=== PATIENT | female | born 1985 | race Caucasian/White ===

== ENCOUNTER → 2016-07-13 | Outpatient (CLI) | payer OTHER ==
--- NOTE | 2016-07-13 14:50 | CT ---
EXAMINATION TYPE: CT brain wo con DATE OF EXAM: 07/13/2016 2:45 PM COMPARISON: CT brain June 12, 2015 HISTORY: Patient complains of severe headache and blurry vision. CT DLP: 1064 mGycm. Automated Exposure Control for Dose Reduction was Utilized. TECHNIQUE: CT scan of the head is performed without contrast. FINDINGS: There is no acute intracranial hemorrhage, mass effect, or midline shift identified. The ventricles and sulci are within normal limits in size. The globes are intact and the visualized sin uses are clear. The calvarium is intact. IMPRESSION: No acute intracranial hemorrhage or midline shift is seen. No significant change from pr ior study is noted.
== END | disposition home or self-care (01) ==
LOC: RADCTMAIN 14:02
PROVIDERS: ATTEND Psychiatry & Neurology Neurology
DX: G93.2 Benign intracranial hypertension (principal)
CPT/HCPCS: 70450

== ENCOUNTER → 2016-07-15 | Day surgery (SDC) | payer OTHER ==
[~2016-07-15] MED LIST: MIDAZOLAM 2 MG/2 ML VIAL IV ONE; SODIUM CHLORIDE 0.9% 250 ML in EMPTY BAG 1 BAG IV PRN; SODIUM CHLORIDE 0.9% 500 ML in EMPTY BAG 1 BAG IV PRN; fentaNYL (PF) 50 MCG/ML 2 ML AMP IV ONE
[2016-07-15 11:36] VITALS: RESP 16; TEMP 97.8
[2016-07-15] MEDS: LACTATED RINGERS 1,000 ML IV ONE (11:40)
[2016-07-15 12:25] VITALS: BP 124/67; PULSE 86
--- NOTE | 2016-07-15 12:25 | P.PCN ---
Date of Procedure: 07/15/16 Preoperative Diagnosis: Pseudotumor cerebri Postoperative Diagnosis: Same as above Anesthesia: local Surgeon: Elvis Moss Pathology: none sent Condition: stable Disposition: no change Operative Findings: Opening pressure 56 mm 20 mls of CSF are taken out with spontaneous flow Closing pressure 31 mm Description of Procedure: This is a 31-year-old morbidly obese lady with history of pseudotumor cerebri. Vision has been having increasing headaches lately and she was referred to us by neurology for lumbar puncture and removal of CSF. The patient assumed the left lateral decubitus position the skin on her back was prepped with DuraPrep and draped in a sterile manner. I then used 1% lidocaine to localize the skin at the L4 5 level midline. I used 5 inch 22- gauge Quincke spinal needle for this procedure. There was positive CSF and negative paresthesia or blood. The intrathecal sac was accessed with one attempt. The opening pressure was 56 mm I then called Dr. Ernesto lawrence the patient's neurologist who then asked me to remove 20 MLS of the CSF. Then 20 MLS of CSF were removed by spontaneous flow back and without applying any negative pressure to the spinal needle. Then the closing pressure was 31 mm. The needle was taken out and Band-Aid was applied to the puncture site and the patient then was placed supine with 30 head elevation. No sedation was provided for this procedure.
== END ==
LOC: PROCWHC3 11:18
PROVIDERS: ATTEND Anesthesiology
DX: G93.2 Benign intracranial hypertension (principal); E66.01 Morbid (severe) obesity due to excess calories; Z68.43 Body mass index [BMI] 50.0-59.9, adult; Z88.5 Allergy status to narcotic agent; Z91.040 Latex allergy status
CPT/HCPCS: 62270; 81025; 96360

== ENCOUNTER 2016-07-16 14:56 | Day surgery (SDC) | payer OTHER ==
[2016-07-16 15:38] VITALS: BP 159/100; PULSE 116; RESP 16
[2016-07-16] MEDS ORDERED: LACTATED RINGERS 1,000 ML IV ONE (15:47)
[2016-07-16] MEDS ORDERED: LIDOCAINE 1% 20 ML VIAL (10MG/ML) FOR IV START INTRADERMA ONE (15:47)
[2016-07-16 15:52] VITALS: TEMP 97.5; BMI 57.2
--- NOTE | 2016-07-16 16:29 | P.CON ---
Consult Note - . Consult date: 07/16/16 Assessment/Plan:: Patient seen and examined, chart reviewed including past medical history, surgical history, social history, family history, full list of medications, and allergies. Ms. Yap is an obese 31-year-old female with history of pseudotumor cerebri who has undergone > 20 therapeutic lumbar punctures in the past, and has never required epidural blood patch in the past. Most recently, LP was performed yesterday by Dr. Moss with removal of 20 ml of fluid. Fluid pressure after drainage decreased to 31 cm H2O per report from 56 cm H2O. Patient states that she had occipital headache prior to procedure, and after procedure, pt began to complain of throbbing on the top of her head (pointing to parietal area). Headache is described as such and patient does not endorse that it changes with position. Physical exam demonstrates an obese female with BP 159/100, HR 116, T94.5F. I had patient in supine, sitting, and standing positions for three to five minutes , and headache quality, intensity, and location did not significantly change. I discussed the patient's case with Dr. Orozco, who agrees that the patient will likely not benefit from an epidural blood patch as she does not have a classic postdural puncture headache. Will give patient prescriptions for [place] and Fioricet for the next week and instructed her to come to ER if she starts to note any neurologic changes or a positional component to headache and there is no benefit from fluids and caffeine. Please call back with any further questions.
== END 2016-07-16 18:19 | disposition home or self-care (01) ==
LOC: ORPAIN 14:56
PROVIDERS: ATTEND Anesthesiology
DX: G97.1 Other reaction to spinal and lumbar puncture (principal); R51 Headache; Y84.4 Aspiration of fluid as the cause of abnormal reaction of the patient, or of later complication, without mention of misadventure at the time of the procedure; G93.2 Benign intracranial hypertension; Z53.8 Procedure and treatment not carried out for other reasons

== ENCOUNTER 2016-07-17 15:33 | Emergency (ER) | payer OTHER ==
[2016-07-17 16:12] VITALS: RESP 18
[2016-07-17] MEDS ORDERED: METOCLOPRAMIDE 5 MG/ML 2 ML VIAL IVP STA (17:10)
[2016-07-17] MEDS ORDERED: SODIUM CHLORIDE 0.9% 1,000 ML IV ONE (17:10)
[2016-07-17] MEDS ORDERED: diphenhydrAMINE 50 MG/ML 1 ML VIAL IVP STA (17:10)
[2016-07-17] MEDS ORDERED: ACETAMINOPHEN IV (For NPO) 1,000 MG in EMPTY BAG 1 BAG IVPB ONE (17:11)
[2016-07-17 17:22] LABS: Basophils % (A) 1 %; CH 26.3; CHCM 32.5; Eosinophils # (A) 0.1 k/uL (0-0.7); Eosinophils % (A) 2 %; HCT 42.5 % (34.0-46.0); HDW 3.13; HGB 13.4 gm/dL (11.4-16.0); Hypochromasia Slight; Luc # (Auto) 0.04; Luc % (Auto) 1; Lymphocytes # (A) 1.2 k/uL (1.0-4.8); Lymphocytes % (A) 16 %; MCH 25.7 pg (25.0-35.0); MCHC 31.6 g/dL (31.0-37.0); MCV 81.3 fL (80.0-100.0); Mean Platelet Volume 7.4; Monocytes # (A) 0.3 k/uL (0-1.0); Monocytes % (A) 4 %; Neutrophils # (A) 5.5 k/uL (1.3-7.7); Neutrophils % (A) 77 %; RBC 5.22 m/uL (3.80-5.40); RDW 15.4 % (11.5-15.5); WBC 7.1 k/uL (3.8-10.6); WBC (Perox) 7.19
[2016-07-17 17:35] LABS: Anion Gap 9 mmol/L; Blood Urea Nitrogen 16 mg/dL (7-17); Calcium 9.1 mg/dL (8.4-10.2); Carbon Dioxide 25 mmol/L (22-30); Chloride 106 mmol/L (98-107); Glucose 117 mg/dL (74-99); Non-African American GFR(MDRD) >60 (>60 ml/min/1.73 sqM); Potassium 4.1 mmol/L (3.5-5.1); Sodium 140 mmol/L (137-145)
--- NOTE | 2016-07-17 17:41 | ED ---
Headache HPI - General Chief Complaint: Headache Stated Complaint: Nausea/Headache Time Seen by Provider: 07/17/16 16:59 Mode of arrival: wheelchair Limitations: no limitations - History of Present Illness Initial Comments: Patient is a 31-year-old female presenting to the with a chief complaint of migraine-like headache. Patient has a history of pseudotumor sure he breathes has undergone greater than 20 therapeutic lumbar punctures in the past. Patient reports that she has recently had a lumbar puncture 2 days ago performed by Dr. santa. At that point the LP removed 20 mL of fluid, patient' s opening pressure was 51 cm and was decreased at 31 cm the closing pressure. Patient states that she does have an occipital headache prior to the procedure and after the procedure. Began to become worse and is a throbbing on the top of her head towards her neck. Patient states that she also feels nauseated however she has not vomited. Patient states that she has had a history of continuous headaches after her lumbar punctures. Patient reports that her headache feels better with sitting straight forward she states that it occasionally feels worse and she laced with a flap. Patient was seen yesterday and was wearing was given IV fluids and was seen by nurse practitioner Bridgette Benites. Dr. Orozco patient's neurologist was contacted in it was reported the patient would not benefit from epidural blood patch she does not have a classic post dural puncture headache. At that point patient is discharged with [place] Fioricet and instructed to come the emergency room for worse. states that she's had no change with her oral medication and reports the headache subsided for approximately 20 minutes and then come back. - Related Data Home Medications Medication Instructions Recorded Confirmed acetaZOLAMIDE [Diamox] 500 mg PO BID 03/04/15 07/17/16 Cetirizine HCl [Zyrtec] 10 mg PO DAILY 04/07/16 07/17/16 Phentermine HCl [Adipex-P] 37.5 mg PO QAM 04/07/16 07/17/16 Topiramate [Topamax] 50 mg PO BID 04/07/16 07/17/16 Levothyroxine Sodium [Synthroid] 150 mcg PO HS 05/26/16 07/17/16 Butalb/APAP/Caff 50-325-40Mg 1 tab PO BID PRN 07/17/16 07/17/16 [Fioricet 50-325-40] Furosemide [Lasix] 20 mg PO MOWEFR 07/17/16 07/17/16 HYDROcodone/APAP 7.5-325MG [[place] 1 tab PO BID PRN 07/17/16 07/17/16 7.5-325] Lisinopril [Zestril] 10 mg PO DAILY 07/17/16 07/17/16 Previous Rx's Medication Instructions Recorded HYDROcodone/APAP 10-325MG [[place] 1 tab PO Q6H PRN #10 tab 07/17/16 10-325] Metoclopramide [Reglan] 10 mg PO BID #8 tab 07/17/16 Allergies Allergy/AdvReac Type Severity Reaction Status Date / Time codeine Allergy Low Blood Verified 07/17/16 16:52 Pressure latex Allergy Rash/Hives Verified 07/17/16 16:52 Review of Systems ROS Statement: Those systems with pertinent positive or pertinent negative responses have been documented in the HPI. ROS Other: All systems not noted in ROS Statement are negative. Past Medical History Past Medical History: Asthma, Hypertension, Thyroid Disorder Additional Past Medical History / Comment(s): severe migraines, pseudotumor cerebri History of Any Multi-Drug Resistant Organisms: None Reported Past Surgical History: Section Additional Past Surgical History / Comment(s): marvel eye surgery, lt oophorectomy Past Anesthesia/Blood Transfusion Reactions: Family History of Problems w/ Anesthesia Additional Past Anesthesia/Blood Transfusion Reaction / Comment(s): mother is allergic to most anesthesia medications experiences hives Past Psychological History: ADD/ADHD, Anxiety, Bipolar, Depression Smoking Status: Current every day smoker Past Alcohol Use History: None Reported Additional Past Alcohol Use History / Comment(s): smoker for 6 years -1 PPD Past Drug Use History: None Reported - Past Family History Mother Family Medical History: No Reported History General Exam - General Exam Comments Initial Comments: Patient is a morbidly obese 31-year-old female. Limitations: no limitations General appearance: alert, in no apparent distress Head exam: Present: atraumatic, normocephalic, normal inspection Eye exam: Present: normal appearance, PERRL, EOMI. Absent: scleral icterus, conjunctival injection, periorbital swelling ENT exam: Present: normal exam, normal oropharynx, mucous membranes moist, TM's normal bilaterally, normal external ear exam Neck exam: Present: normal inspection, full ROM, other (No evidence of meningeal signs.). Absent: tenderness, meningismus, lymphadenopathy, thyromegaly Respiratory exam: Present: normal lung sounds bilaterally. Absent: respiratory distress, wheezes, rales, rhonchi, stridor Cardiovascular Exam: Present: regular rate, normal rhythm, normal heart sounds. Absent: systolic murmur, diastolic murmur, rubs, gallop, clicks GI/Abdominal exam: Present: soft, normal bowel sounds. Absent: distended, tenderness, guarding, rebound, rigid Extremities exam: Present: normal inspection, full ROM, normal capillary refill. Absent: tenderness, pedal edema, joint swelling, calf tenderness Back exam: Present: normal inspection Neurological exam: Present: alert, oriented X3, CN II-XII intact Expanded Patient oriented to: Present: person, place, time Speech: Present: fluid speech Cranial nerves: EOM's Intact: Normal, Gag Reflex: Normal, Tongue Deviation: Normal Cerebellar function: Finger to Nose: Normal Upper motor neuron: Basim Neglect: Normal Sensory exam: Upper Extremity Light Touch: Normal, Lower Extremity Light Touch: Normal Motor strength exam: RUE: 5, LUE: 5, RLE: 5, LLE: 5 Eye Response: (4) open spontaneously Motor Response: (6) obeys commands Verbal Response: (5) oriented Rogers Total: 15 Psychiatric exam: Present: normal affect, normal mood Skin exam: Present: warm, dry, intact, normal color. Absent: rash Course Vital Signs 07/17/16 16:08 Temperature 98.0 F Pulse Rate 99 Respiratory 18 Rate Blood Pressure 164/90 O2 Sat by Pulse 97 Oximetry - Reevaluation(s) Reevaluation #1: 07/17/16 17:48 Patient was reevaluated and states her headache is somewhat mildly improved. She reports that her headache is persistent in regards to position at this time. Reevaluation #2: 07/17/16 19:17 Patient is reevaluated states her headache is continue to persist. We tried multiple times to contact Dr. Orozco her neurologist, however not returned our calls. We'll treat the patient's headache with milligram of Dilaudid. I discussed this case This with Dr. Haywood. Patient will be discharged with more pain medication and instructed to follow-up with her neurologist on Wednesday. Medical Decision Making - Lab Data Result diagrams: 07/17/16 17:03 07/17/16 17:03 Lab Results 07/17/16 07/17/16 Range/Units 17:03 17:03 WBC 7.1 (3.8-10.6) k/uL RBC 5.22 (3.80-5.40) m/uL Hgb 13.4 (11.4-16.0) gm/dL Hct 42.5 (34.0-46.0) % MCV 81.3 (80.0-100.0) fL MCH 25.7 (25.0-35.0) pg MCHC 31.6 (31.0-37.0) g/dL RDW 15.4 (11.5-15.5) % Plt Count 289 (150-450) k/uL Neutrophils % 77 % Lymphocytes % 16 % Monocytes % 4 % Eosinophils % 2 % Basophils % 1 % Neutrophils # 5.5 (1.3-7.7) k/uL Lymphocytes # 1.2 (1.0-4.8) k/uL Monocytes # 0.3 (0-1.0) k/uL Eosinophils # 0.1 (0-0.7) k/uL Basophils # 0.0 (0-0.2) k/uL Hypochromasia Slight Sodium 140 (137-145) mmol/L Potassium 4.1 (3.5-5.1) mmol/L Chloride 106 (98-107) mmol/L Carbon Dioxide 25 (22-30) mmol/L Anion Gap 9 mmol/L BUN 16 (7-17) mg/dL Creatinine 0.94 (0.52-1.04) mg/dL Est GFR (MDRD) Af Amer >60 (>60 ml/min/1.73 sqM) Est GFR (MDRD) Non-Af >60 (>60 ml/min/1.73 sqM) Glucose 117 H (74-99) mg/dL Calcium 9.1 (8.4-10.2) mg/dL Disposition Clinical Impression: Post lumbar puncture headache Disposition: HOME SELF-CARE Condition: Good Instructions: Acute Headache (ED), Lumbar Puncture (ED) Additional Instructions: Patient instructed to follow-up with neurologist on Wednesday. Return to the EC if any alarming signs or symptoms occur including altered mental status, fever or chills. Patient instructed to take pain medications as prescribed. Return to the EC again if any alarming signs occur Prescriptions: HYDROcodone/APAP 10-325MG [[place] 10-325] 1 tab PO Q6H PRN #10 tab PRN Reason: Pain Metoclopramide [Reglan] 10 mg PO BID #8 tab Referrals: Cong Abreu MD [Primary Care Provider] - 1-2 days Time of Disposition: 19:18
[2016-07-17] MEDS ORDERED: HYDROmorphone 1 MG/ML 1 ML SYRINGE IVP STA (19:12)
[2016-07-17 19:53] VITALS: BP 152/86; PULSE 80; TEMP 97.6
== END 2016-07-17 19:53 | disposition home or self-care (01) ==
LOC: EC 15:33
DX: G97.1 Other reaction to spinal and lumbar puncture (principal); G93.2 Benign intracranial hypertension; I10 Essential (primary) hypertension; G43.909 Migraine, unspecified, not intractable, without status migrainosus; E07.9 Disorder of thyroid, unspecified; E66.01 Morbid (severe) obesity due to excess calories; F17.200 Nicotine dependence, unspecified, uncomplicated; Z79.899 Other long term (current) drug therapy; Z91.040 Latex allergy status; Z88.5 Allergy status to narcotic agent
CPT/HCPCS: 36415; 80048; 85025; 99284; 96375 ×3; 96365; 96366; J1200; J2765; J1170; J0131

== ENCOUNTER → 2016-07-20 | Day surgery (SDC) | payer OTHER ==
[2016-07-16 08:48] VITALS: BMI 57.2
[~2016-07-20] MED LIST changes: +BUPIVACAINE (PF) 0.75% 30 ML VIAL ONE; +IV FLUID CONTINUATION 1,000 ML IV ONE; +LACTATED RINGERS 1,000 ML IV ONE; +LACTATED RINGERS 1,000 ML IV SCH; +LIDOCAINE 1% 20 ML VIAL (10MG/ML) FOR IV START INTRADERMA ONE; -MIDAZOLAM 2 MG/2 ML VIAL IV ONE; +MIDAZOLAM 2 MG/2 ML VIAL ONE; -SODIUM CHLORIDE 0.9% 250 ML in EMPTY BAG 1 BAG IV PRN; -SODIUM CHLORIDE 0.9% 500 ML in EMPTY BAG 1 BAG IV PRN; +TRIAMCINOLONE ACETONIDE 40 MG/ML 1 ML VIAL ONE; -fentaNYL (PF) 50 MCG/ML 2 ML AMP IV ONE; +fentaNYL (PF) 50 MCG/ML 2 ML AMP ONE
[2016-07-20 07:46] VITALS: RESP 18; TEMP 97.9
--- NOTE | 2016-07-20 08:56 | P.PCN ---
Date of Procedure: 07/20/16 Procedure(s) Performed: Pre-operative diagnosis: 1- Bilateral occipital neuralgea Post Operative Diagnosis 1- Bilateral occipital neuralgea Procedure: 1- Bilateral occipital nerve block ANESTHESIA: Conscious sedation with Versed. 2 mg and fentanyl 100 micrograms EBL: Minimal PROCEDURE INDICATION: The patient with neck pain and headache secondary to occipital neuralgea unresponsive to conservative treatments. PROCEDURE DESCRIPTION / TECHNIQUE: The patient was seen and identified in the preoperative area. Risks, benefits, complications, and alternatives were discussed with the patient, the patient agreed to proceed with the procedure and signed the consent. IV was started. Vital signs remained stable throughout the procedure. Patient was taken to the OR and time out was completed. The patient was placed in the sitting position on the procedure table. A pillow was placed under the patients chest to increase the cervical interlaminar space. The cervical area and the occiptial area were prepped with alcohol swab. Critical pause was taken. Vital signs were closely monitored during the procedure. Conscious sedation was used during the procedure to decrease patients anxiety. The right occiptal ridge was palpated and was then accessed with a 25 G needle. Then after negative aspiration, 5 ml of the block solution containing 6 ml of PF Buvicaine 0.75% and Kenalog 40 mg was injected. Needle was withdrawn intact. Then the same procedure was repeated on the left side and related the left occipital nerve block, after negative aspiration 6 mL of the block solution containing ropivacaine 0.5% and 40 mg of Kenalog injected after negative aspiration Patient tolerated procedure well. No acute complications.
[2016-07-20 09:23] VITALS: BP 144/82; PULSE 73
== END ==
LOC: ORPAIN 06:40
PROVIDERS: ATTEND Specialist
DX: M54.81 Occipital neuralgia (principal); Z88.5 Allergy status to narcotic agent; Z91.040 Latex allergy status
CPT/HCPCS: 81025; 64405; J2250; J3301; J3010

== ENCOUNTER 2016-10-15 09:41 | Day surgery (SDC) | payer OTHER ==
[2016-09-02 12:35] VITALS: BMI 70.4
[~2016-10-15 09:41] MED LIST changes: -BUPIVACAINE (PF) 0.75% 30 ML VIAL ONE; -IV FLUID CONTINUATION 1,000 ML IV ONE; -LACTATED RINGERS 1,000 ML IV SCH; -LIDOCAINE 1% 20 ML VIAL (10MG/ML) FOR IV START INTRADERMA ONE; -MIDAZOLAM 2 MG/2 ML VIAL ONE; -TRIAMCINOLONE ACETONIDE 40 MG/ML 1 ML VIAL ONE; -fentaNYL (PF) 50 MCG/ML 2 ML AMP ONE
[2016-10-15 10:12] VITALS: TEMP 97.8
[2016-10-15] MEDS ORDERED: LACTATED RINGERS 1,000 ML IV ONE (10:31)
[2016-10-15] MEDS ORDERED: LIDOCAINE 1% 20 ML VIAL (10MG/ML) FOR IV START INTRADERMA ONE (10:31)
[2016-10-15] MEDS: hydrALAZINE HCL 20 MG/ML 1 ML VIAL IVP ONE ×2 (11:08→11:42)
[2016-10-15] MEDS ORDERED: MIDAZOLAM 2 MG/2 ML VIAL ONE (11:15)
[2016-10-15] MEDS ORDERED: fentaNYL (PF) 50 MCG/ML 2 ML AMP ONE (11:15)
[2016-10-15] MEDS ORDERED: BUPIVACAINE (PF) 0.75% 30 ML VIAL ONE (11:15)
--- NOTE | 2016-10-15 11:27 | P.PCN ---
Date of Procedure: 10/15/16 Procedure(s) Performed: Pre-operative diagnosis: 1- Bilateral occipital neuralgea Post Operative Diagnosis 1- Bilateral occipital neuralgea Procedure: 1- Bilateral occipital nerve block ANESTHESIA: Conscious sedation with Versed. 2 mg and fentanyl 100 micrograms EBL: Minimal PROCEDURE INDICATION: The patient with neck pain and headache secondary to occipital neuralgea unresponsive to conservative treatments. PROCEDURE DESCRIPTION / TECHNIQUE: The patient was seen and identified in the preoperative area. Risks, benefits, complications, and alternatives were discussed with the patient, the patient agreed to proceed with the procedure and signed the consent. IV was started. Vital signs remained stable throughout the procedure. Patient was taken to the OR and time out was completed. The patient was placed in the sitting position on the procedure table. A pillow was placed under the patients chest to increase the cervical interlaminar space. The cervical area and right occiptial area were prepped with alcohol swab. Critical pause was taken. Vital signs were closely monitored during the procedure. Conscious sedation was used during the procedure to decrease patients anxiety. The right occiptal ridge was palpated and was then accessed with a 25 G needle. Then after negative aspiration, 6 ml of the block solution containing 6 ml of PF Buvicaine 0.5% and Kenalog 40 mg was injected. Needle was withdrawn intact. Then the same procedure was repeated on the left side and related the left occipital nerve block, after negative aspiration 6 mL of the block solution containing ropivacaine 0.5% and 40 mg of Kenalog injected after negative aspiration Patient tolerated procedure well. No acute complications.
[2016-10-15] MEDS ORDERED: IV FLUID CONTINUATION 850 ML IV ONE ×2 (11:40)
[2016-10-15 12:19] VITALS: BP 165/91; PULSE 99; RESP 18
== END 2016-10-15 12:37 | disposition home or self-care (01) ==
LOC: ORPAIN 09:41
PROVIDERS: ATTEND Specialist
DX: M54.81 Occipital neuralgia (principal); R51 Headache; Z91.040 Latex allergy status
CPT/HCPCS: 81025; 64405; J2250; J0360; J3010

== ENCOUNTER → 2016-10-20 | Day surgery (SDC) | payer OTHER ==
[~2016-10-20] MED LIST changes: +SODIUM CHLORIDE 0.9% 250 ML in EMPTY BAG 1 BAG IV PRN; +SODIUM CHLORIDE 0.9% 500 ML in EMPTY BAG 1 BAG IV PRN
[2016-10-20 11:21] VITALS: TEMP 97.8
[2016-10-20 12:19] VITALS: BP 137/79; PULSE 88; RESP 16
--- NOTE | 2016-10-20 12:45 | P.PCN ---
Date of Procedure: 10/20/16 Anesthesia: local Surgeon: Kaushik Rosenberg Pathology: none sent Condition: stable Disposition: same day Description of Procedure: PREOPERATIVE DIAGNOSIS: 1-pseudotumor cerebri POSTOPERATIVE DIAGNOSIS: 1-pseudotumor cerebri PROCEDURE 1. Diagnostic/therapeutic lumbar puncture ANESTHESIA: Local with 1% lidocaine EBL: Minimal PROCEDURE INDICATION: The patient with persistent headaches due to pseudotumor cerebri who has had > 50 lumbar punctures in the past (both diagnostic and therapeutic) presents for therapeutic LP with measurement of opening and closing pressures as ordered by Dr. Orozco. No use of blood thinners. PROCEDURE DESCRIPTION / TECHNIQUE: The patient was seen and identified in the preoperative area. Risks, benefits, complications, and alternatives were discussed with the patient, including but not limited to bleeding, infection, nerve damage, allergic reactions to medications, and incomplete pain relief. The patient agreed to proceed with the procedure and signed the consent after all questions were answered. Vital signs were stable. Patient was taken to the procedure room and time out was completed to confirm patient position, procedure, area of pain, and allergies. The patient was placed in the lateral decubitus (semi-) position on procedure table with help from nursing staff. The lumbosacral area was prepped and draped in the usual sterile fashion. Vital signs were closely monitored during the procedure. After localization with 1% lidocaine, a 22-gauge 5-inch spinal needle was placed in the L3-L4 interspace. Stylet was removed and clear cerebrospinal fluid was obtained and the opening pressure was noted to be > 56 cm H2O (the top of the tube). 18 ml CSF was removed and put into four tubes. Closing pressure was 32 cm H2O. COMPLICATIONS: None COMMENTS: None DISPOSITION / PLANS: The patient was placed in a supine position and transferred to the recovery area in a stable condition for observation. There was no evidence of lower extremity motor or sensory deficit after the procedure. Patient was discharged from the recovery room after meeting discharge criteria. Home discharge instructions were given to the patient by the staff. The patient was reexamined prior to discharge and there were no issues. The patient will follow up with her neurologist as scheduled.
== END ==
LOC: PROCWHC3 10:57
PROVIDERS: ATTEND Psychiatry & Neurology Neurology
DX: G93.2 Benign intracranial hypertension (principal); E66.01 Morbid (severe) obesity due to excess calories; Z88.5 Allergy status to narcotic agent; Z91.040 Latex allergy status
CPT/HCPCS: 62272; 96361

== ENCOUNTER 2016-10-31 18:31 | Emergency (ER) | payer OTHER ==
[2016-10-31 19:02] VITALS: TEMP 98.8
[2016-10-31] MEDS ORDERED: MORPHINE SULFATE 4 MG/ML SYRINGE IV STA (19:44)
[2016-10-31] MEDS ORDERED: SODIUM CHLORIDE 0.9% 1,000 ML IV STA (19:44)
[2016-10-31 20:30] LABS: Anisocytosis Slight; Basophils % (A) 1 %; CH 25.3; CHCM 31.5; Eosinophils # (A) 0.1 k/uL (0-0.7); Eosinophils % (A) 2 %; HDW 3.23; HGB 14.8 gm/dL (11.4-16.0); Hypochromasia Moderate; Luc # (Auto) 0.15; Luc % (Auto) 2; Lymphocytes # (A) 1.2 k/uL (1.0-4.8); Lymphocytes % (A) 15 %; MCH 25.9 pg (25.0-35.0); MCHC 32.1 g/dL (31.0-37.0); MCV 80.7 fL (80.0-100.0); Mean Platelet Volume 6.8; Monocytes # (A) 0.4 k/uL (0-1.0); Monocytes % (A) 5 %; Neutrophils # (A) 6.1 k/uL (1.3-7.7); Neutrophils % (A) 76 %; RBC 5.69 m/uL (3.80-5.40); RDW 16.2 % (11.5-15.5); WBC 8.1 k/uL (3.8-10.6); WBC (Perox) 8.08
[2016-10-31 20:44] LABS: ALT 60 U/L (9-52); AST 46 U/L (14-36); Alkaline Phosphatase 89 U/L (38-126); Anion Gap 11 mmol/L; Blood Urea Nitrogen 15 mg/dL (7-17); Calcium 9.3 mg/dL (8.4-10.2); Carbon Dioxide 23 mmol/L (22-30); Chloride 109 mmol/L (98-107); Glucose 98 mg/dL (74-99); Magnesium 2.2 mg/dL (1.6-2.3); Non-African American GFR(MDRD) >60 (>60 ml/min/1.73 sqM); Potassium 3.9 mmol/L (3.5-5.1); Sodium 143 mmol/L (137-145); Total Bilirubin 0.6 mg/dL (0.2-1.3); Total Protein 7.9 g/dL (6.3-8.2)
[2016-10-31 20:46] LABS: Partial Thromboplastin Time 23.3 sec (22.0-30.0); Prothrombin Time 9.9 sec (9.0-12.0)
--- NOTE | 2016-10-31 21:16 | ED ---
Headache HPI - General Chief Complaint: Headache Stated Complaint: head pain Time Seen by Provider: 10/31/16 19:11 Source: RN notes reviewed, old records reviewed Mode of arrival: wheelchair Limitations: no limitations - History of Present Illness Initial Comments: This is a 31-year-old female with chief complaint of a severe headache. She reports that she's been diagnosed with pseudotumor cerebri. She reports that she was recently laid left AMA from [facility] after a lumbar puncture and they stated they want to put a shot in her brain. She reports that she wishes she did not leave AMA. She states that her headache is been much worse. She states that she has chronic blurry vision due to her headache. She states that this is going on for 3 weeks. She denies any new neurological symptoms. She reports that she has no nausea or vomiting. Patient reports that she had a lumbar puncture yesterday. She reports that her pressure at that time was 51. Patient reports that her neurologist Dr. Alarcon stated that he wanted to watch her if her symptoms worsens they could intervene up with the brain shunt that she became scared. She currently reports that her headaches a 10 out of 10. Denies any new change in her vision loss. - Related Data Home Medications Medication Instructions Recorded Confirmed acetaZOLAMIDE [Diamox] 500 mg PO BID 03/04/15 10/31/16 Cetirizine HCl [Zyrtec] 10 mg PO DAILY 04/07/16 10/31/16 Topiramate [Topamax] 50 mg PO BID 04/07/16 10/31/16 Levothyroxine Sodium [Synthroid] 150 mcg PO HS 05/26/16 10/31/16 Butalb/APAP/Caff 50-325-40Mg 1 tab PO BID PRN 07/17/16 10/31/16 [Fioricet 50-325-40] HYDROcodone/APAP 7.5-325MG [[place] 1 tab PO BID PRN 07/17/16 10/31/16 7.5-325] Lisinopril [Zestril] 10 mg PO DAILY 07/17/16 10/31/16 ALPRAZolam [Xanax] 0.5 mg PO DAILY PRN 10/31/16 10/31/16 Aspirin EC [Ecotrin Low Dose] 81 mg PO DAILY 10/31/16 10/31/16 Atenolol [Tenormin] 100 mg PO DAILY 10/31/16 10/31/16 Allergies Allergy/AdvReac Type Severity Reaction Status Date / Time codeine Allergy Low Blood Verified 10/31/16 19:56 Pressure latex Allergy Rash/Hives Verified 10/31/16 19:56 Review of Systems ROS Statement: Those systems with pertinent positive or pertinent negative responses have been documented in the HPI. ROS Other: All systems not noted in ROS Statement are negative. Past Medical History Past Medical History: Asthma, Hypertension, Thyroid Disorder Additional Past Medical History / Comment(s): severe migraines, pseudotumor cerebri History of Any Multi-Drug Resistant Organisms: None Reported Past Surgical History: Section Additional Past Surgical History / Comment(s): marvel eye surgery, lt oophorectomy Past Anesthesia/Blood Transfusion Reactions: Family History of Problems w/ Anesthesia Additional Past Anesthesia/Blood Transfusion Reaction / Comment(s): mother is allergic to most anesthesia medications experiences hives Past Psychological History: ADD/ADHD, Anxiety, Bipolar, Depression Smoking Status: Current every day smoker Past Alcohol Use History: Occasional Additional Past Alcohol Use History / Comment(s): smoker for 6 years -1 PPD Past Drug Use History: None Reported - Past Family History Mother Family Medical History: No Reported History General Exam - General Exam Comments Initial Comments: Review obese 31-year-old female. Limitations: no limitations General appearance: alert, in no apparent distress Head exam: Present: atraumatic, normocephalic, normal inspection, other Eye exam: Present: normal appearance, PERRL, EOMI. Absent: scleral icterus, conjunctival injection, periorbital swelling ENT exam: Present: normal exam, mucous membranes moist Neck exam: Present: normal inspection, full ROM, other (A cantholysis nighters hands-on). Absent: tenderness, meningismus, lymphadenopathy Respiratory exam: Present: normal lung sounds bilaterally Cardiovascular Exam: Present: regular rate, normal rhythm, normal heart sounds. Absent: systolic murmur, diastolic murmur, rubs, gallop, clicks GI/Abdominal exam: Present: soft, normal bowel sounds. Absent: distended, tenderness, guarding, rebound, rigid Extremities exam: Present: normal inspection, full ROM, normal capillary refill. Absent: tenderness, pedal edema, joint swelling, calf tenderness Back exam: Present: normal inspection Neurological exam: Present: alert, oriented X3, CN II-XII intact Expanded Patient oriented to: Present: person, place, time Speech: Present: fluid speech Cranial nerves: EOM's Intact: Normal Cerebellar function: Finger to Nose: Normal Upper motor neuron: Basim Neglect: Normal Sensory exam: Upper Extremity Light Touch: Normal, Lower Extremity Light Touch: Normal Motor strength exam: RUE: 5, LUE: 5, RLE: 5, LLE: 5 Eye Response: (4) open spontaneously Motor Response: (6) obeys commands Verbal Response: (5) oriented [place] Total: 15 Psychiatric exam: Present: normal affect, normal mood Skin exam: Present: warm, dry, intact, normal color. Absent: rash Course Vital Signs 10/31/16 18:59 Temperature 98.8 F Pulse Rate 67 Respiratory 20 Rate Blood Pressure 120/56 O2 Sat by Pulse 98 Oximetry Medical Decision Making - Medical Decision Making Patient is a 31-year-old female chief complaint of worsening headache. She's been diagnosed with pseudotumor should be. She reports that she left AMA from [facility] because she was scared of getting a brain shunt. Patient reports that her headaches worsen her vision changes have been the same. Patient is concerned that she does need to have a brain shunt for her headache. Discussed this case with Dr. Graham. We'll be transferring her doctor [facility]. Discussed with Dr. Whitley in the on-call surgeon. He accepts for neurosurgery. Dr. Alarcon is her neurologist and neurosurgeon and [facility]. Patient will be transferred via EMS. Patient agrees. - Lab Data Result diagrams: 10/31/16 20:00 10/31/16 20:00 Lab Results 10/31/16 10/31/16 10/31/16 Range/Units 20:00 20:00 20:00 WBC 8.1 (3.8-10.6) k/uL RBC 5.69 H (3.80-5.40) m/uL Hgb 14.8 (11.4-16.0) gm/dL Hct 46.0 (34.0-46.0) % MCV 80.7 (80.0-100.0) fL MCH 25.9 (25.0-35.0) pg MCHC 32.1 (31.0-37.0) g/dL RDW 16.2 H (11.5-15.5) % Plt Count 383 (150-450) k/uL Neutrophils % 76 % Lymphocytes % 15 % Monocytes % 5 % Eosinophils % 2 % Basophils % 1 % Neutrophils # 6.1 (1.3-7.7) k/uL Lymphocytes # 1.2 (1.0-4.8) k/uL Monocytes # 0.4 (0-1.0) k/uL Eosinophils # 0.1 (0-0.7) k/uL Basophils # 0.0 (0-0.2) k/uL Hypochromasia Moderate Anisocytosis Slight PT 9.9 (9.0-12.0) sec INR 1.0 (<1.1) APTT 23.3 (22.0-30.0) sec Sodium 143 (137-145) mmol/L Potassium 3.9 (3.5-5.1) mmol/L Chloride 109 H (98-107) mmol/L Carbon Dioxide 23 (22-30) mmol/L Anion Gap 11 mmol/L BUN 15 (7-17) mg/dL Creatinine 1.00 (0.52-1.04) mg/dL Est GFR (MDRD) Af Amer >60 (>60 ml/min/1.73 sqM) Est GFR (MDRD) Non-Af >60 (>60 ml/min/1.73 sqM) Glucose 98 (74-99) mg/dL Calcium 9.3 (8.4-10.2) mg/dL Magnesium 2.2 (1.6-2.3) mg/dL Total Bilirubin 0.6 (0.2-1.3) mg/dL AST 46 H (14-36) U/L ALT 60 H (9-52) U/L Alkaline Phosphatase 89 (38-126) U/L Troponin I (0.000-0.034) ng/mL Total Protein 7.9 (6.3-8.2) g/dL Albumin 4.0 (3.5-5.0) g/dL 10/31/16 Range/Units 20:00 WBC (3.8-10.6) k/uL RBC (3.80-5.40) m/uL Hgb (11.4-16.0) gm/dL Hct (34.0-46.0) % MCV (80.0-100.0) fL MCH (25.0-35.0) pg MCHC (31.0-37.0) g/dL RDW (11.5-15.5) % Plt Count (150-450) k/uL Neutrophils % % Lymphocytes % % Monocytes % % Eosinophils % % Basophils % % Neutrophils # (1.3-7.7) k/uL Lymphocytes # (1.0-4.8) k/uL Monocytes # (0-1.0) k/uL Eosinophils # (0-0.7) k/uL Basophils # (0-0.2) k/uL Hypochromasia Anisocytosis PT (9.0-12.0) sec INR (<1.1) APTT (22.0-30.0) sec Sodium (137-145) mmol/L Potassium (3.5-5.1) mmol/L Chloride (98-107) mmol/L Carbon Dioxide (22-30) mmol/L Anion Gap mmol/L BUN (7-17) mg/dL Creatinine (0.52-1.04) mg/dL Est GFR (MDRD) Af Amer (>60 ml/min/1.73 sqM) Est GFR (MDRD) Non-Af (>60 ml/min/1.73 sqM) Glucose (74-99) mg/dL Calcium (8.4-10.2) mg/dL Magnesium (1.6-2.3) mg/dL Total Bilirubin (0.2-1.3) mg/dL AST (14-36) U/L ALT (9-52) U/L Alkaline Phosphatase (38-126) U/L Troponin I <0.012 (0.000-0.034) ng/mL Total Protein (6.3-8.2) g/dL Albumin (3.5-5.0) g/dL 10/31/16 21:58 EKG shows normal sinus rhythm. Disposition Clinical Impression: Pseudotumor cerebri, Headache, Vision blurred Disposition: DC/TRNS INTERMEDIATE CARE FAC Referrals: Cong Abreu MD [Primary Care Provider] - 1-2 days Time of Disposition: 21:57 - Out of Hospital Transfer - Req. Specs Out of Hospital Transfer - Requested Specifics: Other Emergency Center ([facility])
[2016-10-31 22:33] VITALS: BP 143/69; PULSE 70; RESP 18
== END 2016-10-31 23:09 ==
LOC: EC 18:31
DX: G93.2 Benign intracranial hypertension (principal); R51 Headache; H53.8 Other visual disturbances; I10 Essential (primary) hypertension; E07.9 Disorder of thyroid, unspecified; F90.9 Attention-deficit hyperactivity disorder, unspecified type; F31.9 Bipolar disorder, unspecified; F41.9 Anxiety disorder, unspecified; F17.200 Nicotine dependence, unspecified, uncomplicated; Z79.82 Long term (current) use of aspirin; Z79.899 Other long term (current) drug therapy; Z88.5 Allergy status to narcotic agent; Z91.040 Latex allergy status
CPT/HCPCS: 99285; 96374; 96361 ×3; 36415; 93005; 80053; 83735; 84484; 85025; 85610; 85730; J2270

== ENCOUNTER → 2016-12-30 | Outpatient (CLI) | payer OTHER ==
[2016-12-30 13:49] VITALS: BP 164/108; PULSE 95; RESP 20; TEMP 97.9
--- NOTE | 2016-12-30 14:11 | P.PN ---
Progress Note - Text Patient returns for followup for chronic neck pain and headaches. Patient recently underwent endovascular stent placement into a parietal vein, which has provided some relief and improvement in her headaches. Patient continues on Tylenol and occasional Fioricet medications for pain with good relief. Patient denies adverse drug effects from medications. Today, pt denies new-onset weakness, bowel/bladder incontinence, or any other signs or symptoms of cauda equina syndrome. There are no signs of acute intoxication, and no indications of medication diversion or overuse. In addition to above, 13-point review of systems is also negative for chest pain , shortness of breath, changes in vision, changes in hearing, new onset weakness , abdominal pain, diarrhea, extreme fatigue, malaise, fever, skin changes, homicidal or suicidal ideation, or bowel or bladder incontinence. Vital Signs: Reviewed in EMR Gen: WDWN, AAOx3, NAD HEENT: NCAT, EOMI, hearing grossly normal, TTP over occipital ridges Pulm: resp unlabored Abd: soft, NT, ND Neck: supple, trachea midline Neuro: CN II-XII grossly intact, muscle strength lower extremities PRESERVED Imaging: Reviewed in EMR Assessment: 1. occipital neuralgia 2. pseudotumor cerebri 3. chronic headaches Plan: 1. Explanation: Opioid and psychological risk scores were reviewed. Diagnoses , prognoses, and multiple treatment options including but not limited to physical therapy, interventional therapies, adjuvant medical therapies, narcotic medication therapies, and surgery were discussed with the patient and all questions were answered to the patient's satisfaction. 2. Opioid agreement: no opioids prescribed today 3. Counseling: The patient was counseled extensively on BODY MASS INDEX, EXERCISE. Specifically, the patient was instructed regarding the importance of weight control and exercise in the context of both chronic pain and overall health. 4. Procedures: none for now, patient anticoagulated after surgery 5. Consultations: None 6. Investigations: None 7. Medications: none; patient told to get Fioricet from Dr. Orozco from here on 8. Disposition: f/u for re-eval 6 weeks PQRS measures: 1-Patient's medications are documented in the chart. 2-Tobacco use is negative 3-Patient has not had a pneumococcal vaccine. 4-Advanced care planning discussed, patient unable to give. 5-Opioid contract signed with the patient. 6-Pain positive, follow-up visit or procedure scheduled 7-Patient's blood pressure measured and documented, and patient will follow up with the primary care due to hypertension. 8-Patient's weight was measured, and body mass index ABOVE the normal limits, and counseling was done. Patient instructed to follow up with PCP. 9-Patient WAS NOT identified as an unhealthy alcohol user.
== END | disposition home or self-care (01) ==
LOC: PNWHC3 13:22
PROVIDERS: ATTEND Anesthesiology
DX: M54.81 Occipital neuralgia (principal); G93.2 Benign intracranial hypertension
CPT/HCPCS: 99211

== ENCOUNTER → 2017-02-17 | Outpatient (CLI) | payer OTHER ==
[2017-02-17 13:43] VITALS: BP 159/101; PULSE 99; RESP 20; TEMP 98.1
--- NOTE | 2017-02-17 21:33 | P.PN ---
Subjective This is a follow-up visit for this 32 years old female with a history of severe and chronic headache, diagnosed with pseudotumor cerebri and occipital neuralgia , recently patient had the endovascular the brain reviewed were she had stent placed she reported that since the surgical intervention for her pain/headache improved significantly and she had no episode of headache, she is doing very well, not using any pain medication for this reason patient will follow up with the pain clinic on a when necessary basis Objective - Vital Signs Vital signs: Vital Signs Temp 98.1 F 02/17/17 13:42 Pulse 99 02/17/17 13:42 Resp 20 02/17/17 13:42 BP 159/101 02/17/17 13:42 Pulse Ox 94 L 02/17/17 13:42 Intake & Output 02/17/17 02/17/17 02/18/17 06:59 18:59 06:59 Weight 182.344 kg
== END ==
LOC: PNWHC3 12:52
PROVIDERS: ATTEND Specialist
DX: M54.81 Occipital neuralgia (principal)
CPT/HCPCS: 99211

== ENCOUNTER → 2018-02-14 | Outpatient (CLI) | payer OTHER ==
[2018-02-14 19:04] LABS: Hemoglobin A1C 5.2 % (4.0-6.0)
== END | disposition home or self-care (01) ==
LOC: LABWHC1 08:34
PROVIDERS: ATTEND Psychiatry & Neurology Neurology
DX: R20.2 Paresthesia of skin (principal)
CPT/HCPCS: 36415; 82607; 82947; 83036

== ENCOUNTER → 2018-03-25 | Outpatient (CLI) | payer OTHER ==
--- NOTE | 2018-03-25 15:59 | US ---
EXAMINATION TYPE: US pelvis complete transvag DATE OF EXAM: 03/25/2018 COMPARISON: NONE CLINICAL HISTORY: R10.2 Pelvic Pain. Pain left ovary surgically absent. Exam limited to severe morbid ity obese. TECHNIQUE: Transvaginal (TV) and Transabdominal (TA) . Transabdominal sonographic images of the pel vis were acquired. Transvaginal sonographic images were medically necessary to better assess the fol lowing anatomy: Uterus and right ovary. EXAM MEASUREMENTS: Uterus: 9.3 x 4.2 x 6.9 cm Endometrial Stripe: 0.7 cm Left Ovary: Surgically absent 1. Uterus: Anteverted LIMITED NABOTHIAN CYST SEEN. 2. Endometrium: wnl 3. Right Ovary: Obscured by overlying bowel gas 4. Left Ovary: Surgically absent 5. Bilateral Adnexa: wnl 6. Posterior cul-de-sac: wnl Urinary bladder is incompletely distended limitation. IMPRESSION: 1. Normal pelvic ultrasound
== END | disposition home or self-care (01) ==
LOC: RADUSWWP 12:16
PROVIDERS: ATTEND Family Medicine
DX: R10.2 Pelvic and perineal pain (principal); Z88.5 Allergy status to narcotic agent
CPT/HCPCS: 76830; 76856

== ENCOUNTER 2018-08-16 07:19 | Day surgery (SDC) | payer OTHER ==
[2018-08-12 14:39] VITALS: BMI 70.7
[2018-08-16 07:40] VITALS: RESP 18; TEMP 97.2
--- NOTE | 2018-08-16 08:22 | P.PCN ---
Date of Procedure: 08/16/18 Anesthesia: local Description of Procedure: PREOPERATIVE DIAGNOSIS: Idiopathic Intracranial Hypertension POSTOPERATIVE DIAGNOSIS: Idiopathic Intracranial Hypertension PROCEDURE: Diagnostic/therapeutic lumbar puncture- aborted ANESTHESIA: Local with 1% lidocaine EBL: Minimal PROCEDURE INDICATION: The patient with persistent headaches due to pseudotumor cerebri who has had > 50 lumbar punctures in the past (both diagnostic and therapeutic) presents for therapeutic LP with measurement of opening and closing pressures as ordered by Dr. Orozco. No use of blood thinners. PROCEDURE DESCRIPTION / TECHNIQUE: Unable to accessed intrathecal space. Attempt was made in the left lateral decubitus position without success. Fluoroscopy was used and attempted unable to accessed the intrathecal space. Patient very emotional. We'll send back to see a neurologist and if they would like to schedule for a different provider and other day.
[2018-08-16 08:52] VITALS: BP 127/80; PULSE 88
--- NOTE | 2018-08-16 10:12 | FL ---
EXAMINATION TYPE: FL guided pain mgmt statistic DATE OF EXAM: 08/16/2018 COMPARISON: NONE HISTORY: Discontinued lumbar epidural steroid injection TECHNIQUE: Fluoroscopy. FINDINGS: Fluoroscopic guidance was provided during procedure performed by Dr. Millard. A total of 36 seconds of fluoroscopic time was utilized during the procedure and 0 spot images was acquired. IMPRESSION: As Above.
== END 2018-08-16 09:00 | disposition home or self-care (01) ==
LOC: ORPAIN 07:19
PROVIDERS: ATTEND Hospitalist
DX: G93.2 Benign intracranial hypertension (principal); R51 Headache; Z53.8 Procedure and treatment not carried out for other reasons; Z88.5 Allergy status to narcotic agent; Z91.040 Latex allergy status
CPT/HCPCS: 81025; 62272; J2001

== ENCOUNTER → 2018-11-23 | Outpatient (CLI) | payer OTHER | END | disposition home or self-care (01) | LOC: RADMRIMAIN 18:28 | PROVIDERS: ATTEND Psychiatry & Neurology Neurology | DX: Z53.9 Procedure and treatment not carried out, unspecified reason (principal) ==

== ENCOUNTER → 2022-12-02 | Outpatient (CLI) | payer OTHER ==
[2022-12-02 14:30] VITALS: BP 142/93; PULSE 93; RESP 13; TEMP 98; BMI 69.2
--- NOTE | 2022-12-02 15:09 | P.HPBAR ---
Bariatric H&P - History & Physicial H&P Date: 12/02/22 History & Physicial: Visit/CC: new pt Patient initial contact: Initial weight: Initial weight in pounds: Height: 5 ft 3 in Initial BMI: Last weight: Current weight: 177.355 kg Current weight in pounds: 391.00 Current BMI: 69.2 [place] body weight (based on NIH guidelines): 52.163 kg Excess body weight loss: The patient is a 37 year-old F who presents for Bariatric Assessment. Has lifelong obesity. On saxenda without improvement. Highest weight of 465 pounds last January. Most weight loss of 104 pounds from personal training. Fmaily inncludes mother, brother, grandparents on dad's side are obese. She has back pain, right hip, both knees, no akles and both feets. She is always tired and all time. She snores. She has sleep apnea, and needs to be checked. Father mother with diabetes. Mother has heart problems. GM mom has pancreatic cancer. Has occasional heart burn. Still has appendix and gallbladder. Had left ovary removed through umbilicus. [place]. Past Medical History Past Medical History: Asthma, Hypertension, Thyroid Disorder Additional Past Medical History / Comment(s): severe migraines, pseudotumor cerebri/ History of Any Multi-Drug Resistant Organisms: None Reported Past Surgical History: Section Additional Past Surgical History / Comment(s): marvel eye surgery, lt oophorectomy, brain surgery/stent in brain to keep vein open, csection 2003 Past Anesthesia/Blood Transfusion Reactions: Family History of Problems w/ Anesthesia Additional Past Anesthesia/Blood Transfusion Reaction / Comm: mother is allergic to most anesthesia medications experiences hives Past Psychological History: ADD/ADHD, Anxiety, Bipolar, Depression Smoking Status: Former smoker Past Alcohol Use History: Occasional Additional Past Alcohol Use History / Comment(s): smoker for 6 years -1 PPD-QUIT SMOKING 02/2018 Past Drug Use History: None Reported - Past Family History Mother Family Medical History: No Reported History Surgical - Exam Vital Signs Temp Pulse Resp BP 98.0 F 93 13 142/93 12/02/22 14:26 12/02/22 14:26 12/02/22 14:26 12/02/22 14:26 Bariatric Checklist Checklist: Plan: Checklist: EGD: 1. Hiatal hernia: 2. H. Pylori: HgbA1c: Vitamin D: Smoking: Current every day smoker Primary care physician referral: [facility] Psychiatry clearance: Cardiology clearance: Sleep study: Diet journal: VTE risk score: VTE risk level: Rehab needs at discharge:
== END ==
LOC: BARWHC3 13:54
PROVIDERS: ATTEND Surgery Plastic and Reconstructive Surgery
DX: E66.01 Morbid (severe) obesity due to excess calories (principal); Z68.44 Body mass index [BMI] 60.0-69.9, adult; F17.200 Nicotine dependence, unspecified, uncomplicated; J45.909 Unspecified asthma, uncomplicated; I10 Essential (primary) hypertension; E07.9 Disorder of thyroid, unspecified; F31.9 Bipolar disorder, unspecified; F90.9 Attention-deficit hyperactivity disorder, unspecified type; F41.9 Anxiety disorder, unspecified; Z88.5 Allergy status to narcotic agent; Z91.040 Latex allergy status; Z98.890 Other specified postprocedural states
CPT/HCPCS: 99211

== ENCOUNTER → 2022-12-19 | Outpatient (CLI) | payer OTHER ==
[2022-12-19 23:14] LABS: Urine Alcohol Negative (Negative); Urine Barbiturate Negative (Negative); Urine Cocaine Negative (Negative); Urine Methadone Negative (Negative); Urine Opiates Negative (Negative); Urine Phencyclidine Negative (Negative)
[2022-12-22 06:39] LABS: Anabasine Urine <2.0 ng/mL (<2.0)
== END | disposition home or self-care (01) ==
LOC: LABWHC1 09:14
PROVIDERS: ATTEND Surgery Plastic and Reconstructive Surgery
DX: R30.9 Painful micturition, unspecified (principal); Z71.51 Drug abuse counseling and surveillance of drug abuser
CPT/HCPCS: 80306; G0480; 80323

== ENCOUNTER → 2022-12-23 | Outpatient (CLI) | payer OTHER ==
[2022-12-23 10:07] LABS: INR 0.9 (<1.2); Partial Thromboplastin Time 24.4 sec (22.0-30.0); Prothrombin Time 9.6 sec (9.0-12.0)
[2022-12-23 15:59] LABS: HGB 12.9 d/dL (12.0-15.0); MCHC 32.3 d/dL (32.0-37.0); MCV 89.9 FL (80.0-97.0); Mean Platelet Volume 9.4 FL (9.5-12.2); NRBC Per 100 WBC 0 X 10*3/uL (0.00-0.01); Platelet Count 280 X 10*3/uL (140-440); RBC 4.45 X 10*6/uL (4.10-5.20); RDW 14.7 % (11.5-14.5); WBC 6.96 X 10*3/uL (4.50-10.00)
[2022-12-23 16:34] LABS: ALT 41 U/L (8-44); AST 31 U/L (13-35); Albumin 4.1 d/dL (3.8-4.9); Albumin/Globulin Ratio 1.24 Ratio (1.60-3.17); Alkaline Phosphatase 90 U/L (41-126); Blood Urea Nitrogen 15.5 mg/dL (9.0-27.0); Calcium 9.1 mg/dL (8.7-10.3); Carbon Dioxide 26.1 mmol/L (21.6-31.8); Chloride 104 mmol/L (96-109); Chol/HDL Ratio 4.43 Ratio; Globulin 3.3 d/dL (1.6-3.3); Glucose 94 mg/dL (70-110); LDL Cholesterol,Calculated 79.8 mg/dL (0.0-131.0); Potassium 3.7 mmol/L (3.5-5.5); Sodium 142 mmol/L (135-145); Total Bilirubin 0.3 mg/dL (0.3-1.2); Total Protein 7.4 d/dL (6.2-8.2)
[2022-12-23 19:33] LABS: Iron 53 UG/DL (50-170); Magnesium 2.2 mg/dL (1.5-2.4); Phosphorus 2.8 mg/dL (2.4-5.1); Total Iron Binding Capacity 279 UG/DL (228-460)
[2022-12-25 08:40] LABS: Zinc, Serum 73 ug/dL (60-130)
[2022-12-25 10:44] LABS: Vitamin A 52 ug/dL (38-106)
== END | disposition home or self-care (01) ==
LOC: LABWHC1 08:20
PROVIDERS: ATTEND Surgery Plastic and Reconstructive Surgery
DX: E66.01 Morbid (severe) obesity due to excess calories (principal); D50.8 Other iron deficiency anemias; K91.2 Postsurgical malabsorption, not elsewhere classified; E44.0 Moderate protein-calorie malnutrition; E44.1 Mild protein-calorie malnutrition; E45 Retarded development following protein-calorie malnutrition; E55.9 Vitamin D deficiency, unspecified; K74.1 Hepatic sclerosis; N19 Unspecified kidney failure; K50.90 Crohn's disease, unspecified, without complications
CPT/HCPCS: 36415; 80053; 80061; 82306; 82525; 82607; 82728; 82746; 83036; 83540; 83550; 83735; 83970; 84100; 84134; 84255; 84425; 84443; 84590; 84630; 85027; 85610; 85730; 93005

== ENCOUNTER 2023-01-11 06:35 | Day surgery (SDC) | payer OTHER ==
[2023-01-06 14:11] VITALS: BMI 70.8
[~2023-01-11 06:35] MED LIST changes: -LACTATED RINGERS 1,000 ML IV ONE; +LACTATED RINGERS 1,000 ML IV SCH; +LIDOCAINE 1% (10MG/ML) FOR IV START INTRADERMA PRN; -SODIUM CHLORIDE 0.9% 250 ML in EMPTY BAG 1 BAG IV PRN; -SODIUM CHLORIDE 0.9% 500 ML in EMPTY BAG 1 BAG IV PRN
[2023-01-11 06:59] VITALS: TEMP 97.8
[2023-01-11 07:13] LABS: Glucose,Whole Blood 134 mg/dL (70-110)
[2023-01-11] MEDS ORDERED: KETAMINE 10 MG/ML 20 ML VIAL ONE (07:39)
[2023-01-11] MEDS ORDERED: MIDAZOLAM 2 MG/2 ML VIAL ONE (07:39)
[2023-01-11] MEDS ORDERED: PROPOFOL 10 MG/ML 20 ML VIAL IV ONE (07:39)
--- NOTE | 2023-01-11 07:47 | P.GSHP ---
History of Present Illness H&P Date: 01/11/23 CHIEF COMPLAINT: GERD HISTORY OF PRESENT ILLNESS: The patient is a 38-year-old female who presents reports gastroesophageal reflux disease. Upper endoscopy was offered for further evaluation and management. PAST MEDICAL HISTORY: Please see list. PAST SURGICAL HISTORY: Please see list. MEDICATIONS: Please see list. ALLERGIES: Please see list. SOCIAL HISTORY: No illicit drug use FAMILY HISTORY: No reports of Crohn disease or ulcerative colitis. REVIEW OF ORGAN SYSTEMS: CONSTITUTIONAL: No reports of fevers or chills. GI: Denies any blood in stools or constipation. PHYSICAL EXAM: VITAL SIGNS: Stable GENERAL: Well-developed and pleasant in no acute distress. HEENT: No scleral icterus. Extraocular movements grossly intact. Moist buccal mucosa. NECK: Supple without lymphadenopathy. CHEST: Unlabored respirations. Equal bilateral excursions. CARDIOVASCULAR: Regular rate and rhythm. Distal 2+ pulses. ABDOMEN: Soft, nondistended. MUSCULOSKELETAL: No clubbing, cyanosis, or edema. ASSESSMENT: 1. Gastroesophageal reflux disease PLAN: 1. Recommend proceeding with an upper endoscopy Past Medical History Past Medical History: Asthma, Hypertension, Thyroid Disorder Additional Past Medical History / Comment(s): severe migraines, pseudotumor cerebri History of Any Multi-Drug Resistant Organisms: None Reported Past Surgical History: Section Additional Past Surgical History / Comment(s): marvel eye surgery, lt oophorectomy, brain surgery/stent in brain to keep vein open, csection 2003 Past Anesthesia/Blood Transfusion Reactions: Family History of Problems w/ Anesthesia Additional Past Anesthesia/Blood Transfusion Reaction / Comment(s): mother is allergic to most anesthesia medications experiences hives Past Psychological History: ADD/ADHD, Anxiety, Bipolar, Depression, PTSD Smoking Status: Former smoker Past Alcohol Use History: None Reported Additional Past Alcohol Use History / Comment(s): smoker for 6 years -1 PPD-QUIT SMOKING 02/2018 Past Drug Use History: None Reported - Past Family History Mother Family Medical History: No Reported History Medications and Allergies Home Medications Medication Instructions Recorded Confirmed Type lisinopriL [Zestril] 10 mg PO DAILY 07/17/16 01/11/23 History atenoloL [Tenormin] 50 mg PO DAILY 10/31/16 01/11/23 History Cholecalciferol (Vitamin D3) 50,000 units PO Q30D 02/17/17 01/11/23 History [Vitamin D3] Montelukast [Singulair] 10 mg PO DAILY 12/02/22 01/11/23 History buPROPion [Wellbutrin] 300 mg PO DAILY 12/02/22 01/11/23 History busPIRone HCL 30 mg PO DAILY 12/02/22 01/11/23 History lamoTRIgine [LaMICtal] 75 mg PO DAILY 12/02/22 01/11/23 History Albuterol Inhaler [Ventolin Hfa 1 - 2 puff INHALATION Q6H PRN 01/06/23 01/11/23 History Inhaler] Budesonide/Formoterol Fumarate 2 puff INHALATION BID 01/06/23 01/11/23 History [Symbicort 80-4.5 Mcg Inhaler] Furosemide [Lasix] 40 mg PO DAILY 01/06/23 01/11/23 History Levothyroxine Sodium [Synthroid] 225 mcg PO DAILY 01/06/23 01/11/23 History Liraglutide [Saxenda] 0.6 mg SQ DIRECTED 01/06/23 01/11/23 History Loratadine 10 mg PO DAILY 01/06/23 01/11/23 History Allergies Allergy/AdvReac Type Severity Reaction Status Date / Time latex Allergy Rash/Hives Verified 01/11/23 07:00 codeine AdvReac Low Blood Verified 01/11/23 07:00 Pressure Surgical - Exam Vital Signs Temp Pulse Resp BP Pulse Ox 97.8 F 101 H 20 190/95 97 01/11/23 06:55 01/11/23 06:55 01/11/23 06:55 01/11/23 06:55 01/11/23 06:55 Results - Labs Abnormal Lab Results - Last 24 Hours (Table) 01/11/23 Range/Units 07:08 POC Glucose (mg/dL) 134 H (70-110) mg/dL
[2023-01-11 08:02] VITALS: PULSE 90; RESP 16
[2023-01-11 08:12] VITALS: BP 138/75
--- NOTE | 2023-01-11 08:26 | P.PCN ---
Date of Procedure: 01/11/23 Description of Procedure: PREOPERATIVE DIAGNOSIS: Gastroesophageal reflux disease. Morbid obesity due to excess calories, BMI 72.9 POSTOPERATIVE DIAGNOSIS: Gastroesophageal reflux disease. Morbid obesity due to excess calories, BMI 72.9 Gastritis. OPERATION: Esophagogastroduodenoscopy with biopsies along antrum and duodenum SURGEON: Jaymie Barfield MD ANESTHESIA: MAC. INDICATIONS: The patient is a 38-year-old female who presents with reflux disease. Benefits and risks of the procedure were described. Informed consent was obtained. DESCRIPTION: The patient was brought into the endoscopy suite and laid in the left lateral decubitus position. An Olympus gastroscope was passed along the posterior oropharynx down to the distal esophagus where the squamocolumnar junction was encountered at 39 cm from the incisors. The stomach was entered and no bile reflux was found. Additional findings are listed below. Biopsies with cold forceps were obtained of the antrum. The first through third portion of the duodenum was examined. Retroflexion of the scope confirmed Hill grade 3 lower esophageal valve. The squamocolumnar junction demonstrated LA grade B erosive esophagitis. The stomach was desufflated. The patient tolerated the procedure well. FINDINGS: Squamocolumnar junction 39 cm from the incisors. Diaphragmatic hiatus at 39 cm. Hill grade 3 lower esophageal valve. LA grade B erosive esophagitis. Biopsies obtained of the duodenum. Chronic gastritis with biopsies obtained. RECOMMENDATIONS: Upper endoscopy as needed. Plan - Discharge Summary Discharge Rx Participant: No New Discharge Prescriptions: Continue lisinopriL [Zestril] 10 mg PO DAILY atenoloL [Tenormin] 50 mg PO DAILY Cholecalciferol (Vitamin D3) [Vitamin D3] 50,000 units PO Q30D buPROPion [Wellbutrin] 300 mg PO DAILY Loratadine 10 mg PO DAILY Liraglutide [Saxenda] 0.6 mg SQ DIRECTED Levothyroxine Sodium [Synthroid] 225 mcg PO DAILY Albuterol Inhaler [Ventolin Hfa Inhaler] 1 - 2 puff INHALATION Q6H PRN PRN Reason: Dyspnea Budesonide/Formoterol Fumarate [Symbicort 80-4.5 Mcg Inhaler] 2 puff INHALATION BID lamoTRIgine [LaMICtal] 75 mg PO DAILY busPIRone HCL 30 mg PO DAILY Montelukast [Singulair] 10 mg PO DAILY Furosemide [Lasix] 40 mg PO DAILY Discharge Medication List lisinopriL [Zestril] 10 mg PO DAILY 07/17/16 [History] atenoloL [Tenormin] 50 mg PO DAILY 10/31/16 [History] Cholecalciferol (Vitamin D3) [Vitamin D3] 50,000 units PO Q30D 02/17/17 [History] Montelukast [Singulair] 10 mg PO DAILY 12/02/22 [History] buPROPion [Wellbutrin] 300 mg PO DAILY 12/02/22 [History] busPIRone HCL 30 mg PO DAILY 12/02/22 [History] lamoTRIgine [LaMICtal] 75 mg PO DAILY 12/02/22 [History] Albuterol Inhaler [Ventolin Hfa Inhaler] 1 - 2 puff INHALATION Q6H PRN 01/06/23 [History] Budesonide/Formoterol Fumarate [Symbicort 80-4.5 Mcg Inhaler] 2 puff INHALATION BID 01/06/23 [History] Furosemide [Lasix] 40 mg PO DAILY 01/06/23 [History] Levothyroxine Sodium [Synthroid] 225 mcg PO DAILY 01/06/23 [History] Liraglutide [Saxenda] 0.6 mg SQ DIRECTED 01/06/23 [History] Loratadine 10 mg PO DAILY 01/06/23 [History] Follow up Appointment(s[facility] [place] [facility] - [facility] Patient Instructions/Handouts: Gastritis (DC) Discharge Disposition: HOME SELF-CARE
== END 2023-01-11 08:50 | disposition home or self-care (01) ==
LOC: ORWHC2ENDO 06:35
PROVIDERS: ATTEND Surgery Plastic and Reconstructive Surgery
DX: K29.90 Gastroduodenitis, unspecified, without bleeding (principal); K21.00 Gastro-esophageal reflux disease with esophagitis, without bleeding; K44.9 Diaphragmatic hernia without obstruction or gangrene; E66.01 Morbid (severe) obesity due to excess calories; Z68.45 Body mass index [BMI] 70 or greater, adult; J45.909 Unspecified asthma, uncomplicated; I10 Essential (primary) hypertension; G93.2 Benign intracranial hypertension; E07.9 Disorder of thyroid, unspecified; G43.909 Migraine, unspecified, not intractable, without status migrainosus; F41.9 Anxiety disorder, unspecified; F32.A Depression, unspecified; F43.10 Post-traumatic stress disorder, unspecified; F90.9 Attention-deficit hyperactivity disorder, unspecified type; Z87.891 Personal history of nicotine dependence; Z91.040 Latex allergy status; Z88.5 Allergy status to narcotic agent; Z79.890 Hormone replacement therapy; Z79.51 Long term (current) use of inhaled steroids; Z79.899 Other long term (current) drug therapy
CPT/HCPCS: 81025; 88305; 88342; 43239; J2250; J2704

== ENCOUNTER → 2023-02-22 | Outpatient (CLI) | payer OTHER ==
[2023-02-22 11:47] VITALS: BMI 69.5
== END ==
LOC: BARWHC3 08:44
PROVIDERS: ATTEND Surgery Plastic and Reconstructive Surgery
DX: E66.01 Morbid (severe) obesity due to excess calories (principal); F17.200 Nicotine dependence, unspecified, uncomplicated; Z68.44 Body mass index [BMI] 60.0-69.9, adult; Z71.3 Dietary counseling and surveillance; Z91.040 Latex allergy status; Z88.5 Allergy status to narcotic agent
CPT/HCPCS: 97804

== ENCOUNTER → 2023-02-24 | Outpatient (CLI) | payer OTHER ==
--- NOTE | 2023-02-24 09:52 | XR ---
EXAMINATION TYPE: XR chest 1V DATE OF EXAM: 02/24/2023 9:39 AM COMPARISON: None TECHNIQUE: XR chest 1V Frontal view of the chest. CLINICAL INDICATION:Female, 38 years old with history of G47.3 Sleep Apnea; FINDINGS: Lungs/Pleura: There is no evidence of pleural effusion, focal consolidation, or pneumothorax. Pulmonary vascularity: Unremarkable. Heart/mediastinum: Cardiomediastinal silhouette is unremarkable. Musculoskeletal: No acute osseous pathology. IMPRESSION: No acute cardiopulmonary disease/process.
== END | disposition home or self-care (01) ==
LOC: LABWHC1 09:23
PROVIDERS: ATTEND Surgery Plastic and Reconstructive Surgery
DX: G47.30 Sleep apnea, unspecified (principal)
CPT/HCPCS: 71045

== ENCOUNTER → 2023-05-26 | Outpatient (CLI) | payer OTHER ==
[2023-05-26 16:21] LABS: Basophils # (A) 0.05 X 10*3/uL (0.00-0.10); Basophils % (A) 0.7 %; Eosinophils # (A) 0.13 X 10*3/uL (0.04-0.35); Eosinophils % (A) 1.8 %; HCT 43.6 % (37.2-46.3); HGB 13.9 g/dL (12.0-15.0); Lymphocytes # (A) 1.27 X 10*3/uL (0.90-5.00); Lymphocytes % (A) 17.6 %; MCH 28.1 pg (27.0-32.0); MCHC 31.9 g/dL (32.0-37.0); MCV 88.3 FL (80.0-97.0); Mean Platelet Volume 9.7 FL (9.5-12.2); Monocytes # (A) 0.55 X 10*3/uL (0.20-1.00); Monocytes % (A) 7.6 %; NRBC Per 100 WBC 0 X 10*3/uL (0.00-0.01); Neutrophils # (A) 5.18 X 10*3/uL (1.80-7.70); Platelet Count 286 X 10*3/uL (140-440); RBC 4.94 X 10*6/uL (4.10-5.20); RDW 14.7 % (11.5-14.5)
== END | disposition home or self-care (01) ==
LOC: LABPAT 09:56
PROVIDERS: ATTEND Surgery Plastic and Reconstructive Surgery
DX: Z01.812 Encounter for preprocedural laboratory examination (principal)
CPT/HCPCS: 36415; 80053; 85025; 86850; 86900; 86901

== ENCOUNTER → 2023-05-27 | Outpatient (CLI) | payer OTHER ==
[2023-05-27 11:45] LABS: ALT 59 U/L (4-34); AST 54 U/L (14-36); African American GFR (CKD) >90 (>60 ml/min/1.73 sqM); Albumin 4.7 g/dL (3.5-5.0); Albumin/Globulin Ratio 1.2; Alkaline Phosphatase 81 U/L (38-126); Anion Gap 14 mmol/L; Blood Urea Nitrogen 20 mg/dL (7-17); Calcium 9.8 mg/dL (8.4-10.2); Carbon Dioxide 24 mmol/L (22-30); Chloride 100 mmol/L (98-107); Globulin 3.9 g/dL; Glucose 116 mg/dL (74-99); Non-African American GFR(CKD) 87 (>60 ml/min/1.73 sqM); Potassium 4.7 mmol/L (3.5-5.1); Sodium 138 mmol/L (137-145); Total Bilirubin 0.7 mg/dL (0.2-1.3); Total Protein 8.6 g/dL (6.3-8.2)
== END | disposition home or self-care (01) ==
LOC: LABPAT 11:16
PROVIDERS: ATTEND Surgery Plastic and Reconstructive Surgery
DX: Z01.812 Encounter for preprocedural laboratory examination (principal)
CPT/HCPCS: 80053

== ENCOUNTER 2023-05-31 09:06 | Inpatient (IN) | payer OTHER ==
--- NOTE | 2023-05-31 07:52 | P.GSHP ---
History of Present Illness H&P Date: 05/31/23 CHIEF COMPLAINT: Morbid obesity HISTORY OF PRESENT ILLNESS: Jagdish Quintanilla is a 38-year-old female who comes with lifelong morbid obesity. As result of morbid obesity, she has developed pseudotumor cerebri, hypertensive heart disease, chronic obstructive pulmonary disease, osteoarthritis of the hips and knees. She has completed medical supervised weight loss. She completed medical including cardiac assessment. She has completed psychological risk assessment. All surgical options were revi ewed. She elected for a sleeve gastrectomy. At height of 5 feet 1 inches, her ideal body weight is 131pounds. She comes in 403 pounds. Her body mass index is 76.1. She is 272 pounds overweight. PAST MEDICAL HISTORY: 1. Morbid obesity due to excess calories 2. Body mass index of 76.1 3. Osteoarthritis of the knees. 4. Osteoarthritis of the lower back. 5. Hypertensive heart disease. 6. Gastroesophageal reflux disease 7. Chronic obstructive pulmonary disease 8. Depressive disorder 9. Pseudotumor cerebri 10. Severe migraine 11. Motion sickness 12. Attention deficit disorder 13. Generalized anxiety disorder 14. Bipolar disorder 15. Posttraumatic stress disorder 16. ADHD PAST SURGICAL HISTORY: 1. section 2. Left pleurectomy 3. EGD 4. Bilateral eye surgery 5. Ventricular peritoneal shunt HOME MEDICATIONS: Home Medications Medication Instructions Recorded Confirmed lisinopriL [Zestril] 10 mg PO QAM 07/17/16 05/24/23 busPIRone HCL 10 mg PO TID 12/02/22 05/24/23 lamoTRIgine [LaMICtal] 75 mg PO QAM 12/02/22 05/24/23 Albuterol Inhaler [Ventolin Hfa 1 - 2 puff INHALATION Q6H PRN 01/06/23 05/24/23 Inhaler] Budesonide/Formoterol Fumarate 2 puff INHALATION BID 01/06/23 05/24/23 [Symbicort 80-4.5 Mcg Inhaler] Levothyroxine Sodium [Synthroid] 200 mcg PO QAM 01/06/23 05/24/23 Loratadine 10 mg PO QAM 01/06/23 05/24/23 Cholecalciferol (Vitamin D3) 1,250 mcg PO Q30D 05/24/23 05/24/23 [Vitamin D3] Cranberry (Unknown Dose) 1 tab PO DAILY 05/24/23 05/24/23 Levothyroxine Sodium 25 mcg PO QAM 05/24/23 05/24/23 Liraglutide [Saxenda] 6 ml SQ DAILY 05/24/23 05/24/23 Montelukast [Singulair] 5 mg PO QAM 05/24/23 05/24/23 Multivitamins, Thera [Multivitamin 1 tab PO DAILY 05/24/23 05/24/23 (formulary)] Vitamin B-12 (Unknown Dose) 1 tab PO DAILY 05/24/23 05/24/23 Vitamin C/Biotin [Hair, Skin and 1 tab PO DAILY 05/24/23 05/24/23 Nails Chew] atenoloL 100 mg PO QAM 05/24/23 05/24/23 buPROPion HCL [buPROPion HCL SR] 300 mg PO QAM 05/24/23 05/24/23 ALLERGIES: Allergies Allergy/AdvReac Type Severity Reaction Status Date / Time latex Allergy Rash/Hives Verified 05/24/23 15:34 codeine AdvReac Low Blood Verified 05/24/23 15:34 Pressure SOCIAL HISTORY: Past tobacco use. FAMILY HISTORY: No family history of ulcerative colitis disease or Crohn's dise ase. Family history of morbid obesity. No lupus in the family. No reports of stomach or esophageal cancer. REVIEW OF ORGAN SYSTEMS: CONSTITUTIONAL: At height of 5 feet 1 inches, her ideal body weight is 131pounds. She comes in 403 pounds. Her body mass index is 76.1. She is 272 pounds overweight. HEENT: Denies any active troubles with vision or hearing. ENDOCRINE: Denies diabetes. Has hypothyroidism. CARDIOVASCULAR: Denies reports of palpitations or heart attacks or chest pain. RESPIRATORY: Has daytime somnolence. GASTROINTESTINAL: Denies any bright red blood per rectum. Has gastroesophageal reflux disease. MUSCULOSKELETAL: Has lower back pain and joint pain. Has osteoarthritis of the knees. NEURO: No headaches. No seizure disorders. PSYCH: Has depression. No suicidal ideation. Has PTSD, ADHD, bipolar disorder, generalized anxiety disorder. RHEUMATOLOGIC: No lupus. No rheumatoid arthritis. HEMATOLOGIC: Denies any abnormal bleeding or bruising. No personal history of DVTs. SKIN: Has rash. No skin cancer. PHYSICAL EXAM: VITAL SIGNS: Height 5 foot 1 inches, weight 403 pounds. BMI 76.1 GENERAL: Well-developed in no acute distress. HEENT: No scleral icterus. Extraocular movements grossly intact. Hears conversational speech. No nasal drainage. NECK: Supple without lymphadenopathy. CHEST: Nonlabored respirations with equal bilateral excursions. CARDIOVASCULAR: Regular rate and regular rhythm. Distal 2+ pulses. ABDOMEN: Obese, soft, nontender, nondistended. MUSCULOSKELETAL: No clubbing, cyanosis. NEURO: No focal or lateralizing signs. Cranial nerves 2 through 12 grossly within normal limits. PSYCH: Appropriate affect. Alert and oriented to person, place and time. SKIN: Good skin turgor. Well perfused. ASSESSMENT: 1. Morbid obesity due to excess calories 2. Body mass index of 76.1 3. Osteoarthritis of the knees. 4. Osteoarthritis of the lower back. 5. Hypertensive heart disease. 6. Gastroesophageal reflux disease 7. Chronic obstructive pulmonary disease 8. Depressive disorder 9. Pseudotumor cerebri 10. Severe migraine 11. Motion sickness 12. Attention deficit disorder 13. Generalized anxiety disorder 14. Bipolar disorder 15. Posttraumatic stress disorder 16. ADHD PLAN: 1. Bariatric options between a sleeve, band and a Eunice-en-Y gastric bypass were reviewed in detail. The patient elected for a sleeve gastrectomy. Robotic assisted approach described. 2. The [place] [facility] Data was also reviewed with benefits and risks as described. 3. An 8 page second-generation bariatric consent form was reviewed in detail including potential of bleeding, infection, leaks, adequate weight loss, nutritional deficiencies which the patient demonstrated understanding of the risks. 4. A 2 week high-protein low caloric 800 kcal diet described to address hepatomegaly. 5. Preoperative labs including complete metabolic panel and CBC with type and screen recommended. 6. DVT prophylaxis per [place] [facility]. 7. Antibiotic prophylaxis. 8. Inpatient hospitalization anticipated for more than 2 nights. 9. All questions and concerns were addressed with the patient. 10. The patient is at elevated risk for perioperative complications with sleep apnea and hypertensive heart disease. 11. Overall, patient has expressed understanding of bariatric care including postoperative diet and commitment of lifestyle. Patient should benefit from surgical intervention for correction of morbid obesity. 12. She is elevated risk due to pre-existing comorbid conditions including BMI over 70 Past Medical History Past Medical History: Asthma, Eye Disorder, Hypertension, Osteoarthritis (OA), Skin Disorder, Thyroid Disorder Additional Past Medical History / Comment(s): Severe migraines, pseudotumor cerebri, ezcema, legally blind, "able to to see enough to care for self". History of Any Multi-Drug Resistant Organisms: None Reported Past Surgical History: Section Additional Past Surgical History / Comment(s): Bilatereal eye surgery, left oophorectomy, brain surgery/stent in brain to keep vein open, EGD. Past Anesthesia/Blood Transfusion Reactions: Family History of Problems w/ Anesthesia, Motion Sickness Additional Past Anesthesia/Blood Transfusion Reaction / Comment(s): Mother is allergic to most anesthesia medications experiences hives. Past Psychological History: ADD/ADHD, Anxiety, Bipolar, Depression, PTSD Smoking Status: Former smoker Past Alcohol Use History: Occasional Additional Past Alcohol Use History / Comment(s): Smoker for 6 years , 1 PPD, quit 02/2018. No alcohol in 3 yrs. Past Drug Use History: None Reported - Past Family History Mother Family Medical History: No Reported History Medications and Allergies Home Medications Medication Instructions Recorded Confirmed Type lisinopriL [Zestril] 10 mg PO QAM 07/17/16 05/24/23 History busPIRone HCL 10 mg PO TID 12/02/22 05/24/23 History lamoTRIgine [LaMICtal] 75 mg PO QAM 12/02/22 05/24/23 History Albuterol Inhaler [Ventolin Hfa 1 - 2 puff INHALATION Q6H PRN 01/06/23 05/24/23 History Inhaler] Budesonide/Formoterol Fumarate 2 puff INHALATION BID 01/06/23 05/24/23 History [Symbicort 80-4.5 Mcg Inhaler] Levothyroxine Sodium [Synthroid] 200 mcg PO QAM 01/06/23 05/24/23 History Loratadine 10 mg PO QAM 01/06/23 05/24/23 History Cholecalciferol (Vitamin D3) 1,250 mcg PO Q30D 05/24/23 05/24/23 History [Vitamin D3] Cranberry (Unknown Dose) 1 tab PO DAILY 05/24/23 05/24/23 History Levothyroxine Sodium 25 mcg PO QAM 05/24/23 05/24/23 History Liraglutide [Saxenda] 6 ml SQ DAILY 05/24/23 05/24/23 History Montelukast [Singulair] 5 mg PO QAM 05/24/23 05/24/23 History Multivitamins, Thera [Multivitamin 1 tab PO DAILY 05/24/23 05/24/23 History (formulary)] Vitamin B-12 (Unknown Dose) 1 tab PO DAILY 05/24/23 05/24/23 History Vitamin C/Biotin [Hair, Skin and 1 tab PO DAILY 05/24/23 05/24/23 History Nails Chew] atenoloL 100 mg PO QAM 05/24/23 05/24/23 History buPROPion HCL [buPROPion HCL SR] 300 mg PO QAM 05/24/23 05/24/23 History Allergies Allergy/AdvReac Type Severity Reaction Status Date / Time latex Allergy Rash/Hives Verified 05/24/23 15:34 codeine AdvReac Low Blood Verified 05/24/23 15:34 Pressure
[~2023-05-31 09:06] MED LIST changes: +ACETAMINOPHEN TAB 500 MG TAB PO PRN; +ALVIMOPAN 12 MG CAPSULE PO PRN; +CHLORHEXIDINE GLUCONATE 15 ML CUP MUCOUS MEM PRN; +ENOXAPARIN 40 MG/0.4 ML SYRINGE SQ PRN; -LACTATED RINGERS 1,000 ML IV SCH; -LIDOCAINE 1% (10MG/ML) FOR IV START INTRADERMA PRN; +MIDAZOLAM 2 MG/2 ML VIAL IV PRN; +ONDANSETRON 4 MG/2 ML VIAL IVP PRN; +PANTOPRAZOLE 40 MG/10 ML VIAL IVP PRN; +ceFAZolin 3 GM in SODIUM CHLORIDE 0.9% 100 ML IVPB PRN; +droPERidol 5 MG/2 ML VIAL IVP ONE
[2023-05-31] MEDS: LACTATED RINGERS 1,000 ML IV SCH (09:23)
[2023-05-31 09:41] LABS: Glucose,Whole Blood 131 mg/dL (70-110)
[2023-05-31] MEDS: SCOPOLAMINE 1 MG/72 HR PATCH TRANSDERM STA ×2 (09:51→17:33)
[2023-05-31] MEDS ORDERED: SUCCINYLCHOLINE CHLORIDE 200 MG/10 ML VIAL IV ONE (10:00)
[2023-05-31] MEDS ORDERED: fentaNYL (PF) 50 MCG/ML 2 ML AMP ONE (10:00)
[2023-05-31] MEDS ORDERED: NEOSTIGMINE 1 MG/ML 10 ML VIAL ONE (10:00)
[2023-05-31] MEDS ORDERED: PROPOFOL 10 MG/ML 20 ML VIAL IV ONE (10:00)
[2023-05-31] MEDS ORDERED: LIDOCAINE 1% INJ 10MG/ML (20 ML MDV) ONE (10:00)
[2023-05-31] MEDS ORDERED: HYDROmorphone (PF) 1 MG/ML ONE (10:00)
[2023-05-31] MEDS ORDERED: GLYCOPYRROLATE 0.2 MG/ML 2 ML VIAL ONE (10:00)
[2023-05-31] MEDS ORDERED: ROCURONIUM 10 MG/ML (5 ML VIAL) IV ONE (10:00)
[2023-05-31] MEDS ORDERED: MIDAZOLAM 2 MG/2 ML VIAL ONE (10:00)
[2023-05-31 10:07] LABS: Basophils % (A) 1 %; Eosinophils % (A) 1 %; HCT 43.5 % (34.0-46.0); HGB 14.7 gm/dL (11.4-16.0); Lymphocytes # (A) 0.6 k/uL (1.0-4.8); Lymphocytes % (A) 11 %; MCH 29.3 pg (25.0-35.0); MCHC 33.8 g/dL (31.0-37.0); MCV 86.5 fL (80.0-100.0); Mean Platelet Volume 7.7; Monocytes # (A) 0.4 k/uL (0-1.0); Monocytes % (A) 7 %; Neutrophils # (A) 4.3 k/uL (1.3-7.7); Neutrophils % (A) 80 %; Platelet Count 237 k/uL (150-450); RBC 5.03 m/uL (3.80-5.40); RDW 14.7 % (11.5-15.5); WBC 5.4 k/uL (3.8-10.6)
[2023-05-31 10:21] LABS: ALT 43 U/L (4-34); AST 38 U/L (14-36); African American GFR (CKD) 77 (>60 ml/min/1.73 sqM); Albumin 4.6 g/dL (3.5-5.0); Alkaline Phosphatase 81 U/L (38-126); Anion Gap 16 mmol/L; Blood Urea Nitrogen 21 mg/dL (7-17); Calcium 9.4 mg/dL (8.4-10.2); Carbon Dioxide 18 mmol/L (22-30); Chloride 101 mmol/L (98-107); Glucose 134 mg/dL (74-99); Non-African American GFR(CKD) 66 (>60 ml/min/1.73 sqM); Potassium 4.1 mmol/L (3.5-5.1); Sodium 135 mmol/L (137-145); Total Bilirubin 0.9 mg/dL (0.2-1.3); Total Protein 8.3 g/dL (6.3-8.2)
[2023-05-31] MEDS ORDERED: LIDOCAINE 0.5%-EPI 1:200,000 50 ML VIAL SQ ONE (10:38)
[2023-05-31] MEDS ORDERED: LACTATED RINGERS 1,000 ML IV ONE (11:35)
[2023-05-31 12:34] LABS: Glucose,Whole Blood 156 mg/dL (70-110)
[2023-05-31] MEDS ORDERED: NALOXONE 0.4 MG/ML 1 ML VIAL IV PRN ×2 (13:01→13:14)
[2023-05-31] MEDS ORDERED: diphenhydrAMINE 50 MG/ML 1 ML VIAL IVP PRN (13:01)
[2023-05-31] MEDS ORDERED: DEXAMETHASONE SOD PHOSPHATE 10 MG/ML 1 ML VIAL IVP STA (13:06)
[2023-05-31] MEDS ORDERED: SODIUM CHLORIDE 0.9% 2,000 ML IV ONE (13:07)
[2023-05-31] MEDS ORDERED: HYDROmorphone 1 MG/ML 1 ML SYRINGE IVP PRN (13:15)
[2023-05-31] MEDS: HYDROmorphone 0.5 MG/0.5 ML SYRINGE IVP PRN ×2 (14:12→15:36)
[2023-05-31] MEDS ORDERED: droPERidol 5 MG/2 ML VIAL IVP ONE (15:05)
[2023-05-31] MEDS ORDERED: IV FLUID CONTINUATION 1,000 ML IV ONE (16:19)
[2023-05-31] MEDS: ALBUTEROL NEBULIZED 2.5 MG/3 ML INHALATION SCH ×2 (16:24→18:29)
[2023-05-31] MEDS ORDERED: ACETAMINOPHEN IV (For NPO) 1,000 MG in EMPTY BAG 1 BAG IVPB ONE (17:00)
[2023-05-31] MEDS: fentaNYL PCA 500 MCG/50 ML BAG IV SCH (17:56)
[2023-05-31] MEDS: 0.9% NACL WITH KCL 20 MEQ/L 1,000 ML IV SCH (17:56)
[2023-05-31] MEDS ORDERED: ceFAZolin 3 GM in SODIUM CHLORIDE 0.9% 100 ML IVPB SCH (18:00)
[2023-05-31] MEDS: ONDANSETRON 4 MG/2 ML VIAL IVP SCH ×2 (19:06→23:41)
[2023-05-31] MEDS: HYOSCYAMINE ORAL DROPS 1.875 MG/15 ML BOTTLE PO SCH ×2 (19:07→23:43)
[2023-05-31] MEDS: DEXAMETHASONE SOD PHOSPHATE 4 MG/ML 1 ML VIAL IVP SCH ×2 (19:07→23:42)
[2023-05-31] MEDS: SIMETHICONE 80 MG CHEWABLE PO SCH ×2 (19:07→23:42)
[2023-05-31] MEDS: SYMBICORT 80-4.5 MCG INHALER INHALATION SCH (21:43)
[2023-05-31] MEDS: ACETAMINOPHEN IV (For NPO) 1,000 MG in EMPTY BAG 1 BAG IVPB SCH (23:41)
[2023-06-01] MEDS: 0.9% NACL WITH KCL 20 MEQ/L 1,000 ML IV SCH ×2 (01:46→05:57)
[2023-06-01] MEDS: ONDANSETRON 4 MG/2 ML VIAL IVP SCH ×2 (05:53→11:47)
[2023-06-01] MEDS: DEXAMETHASONE SOD PHOSPHATE 4 MG/ML 1 ML VIAL IVP SCH ×2 (05:53→11:47)
[2023-06-01] MEDS: ACETAMINOPHEN IV (For NPO) 1,000 MG in EMPTY BAG 1 BAG IVPB SCH ×2 (05:53→11:48)
[2023-06-01] MEDS: SIMETHICONE 80 MG CHEWABLE PO SCH ×2 (05:56→11:44)
[2023-06-01] MEDS: HYOSCYAMINE ORAL DROPS 1.875 MG/15 ML BOTTLE PO SCH ×2 (05:56→11:46)
[2023-06-01] MEDS: SYMBICORT 80-4.5 MCG INHALER INHALATION SCH (08:00)
[2023-06-01] MEDS: ALBUTEROL NEBULIZED 2.5 MG/3 ML INHALATION SCH ×2 (08:00→12:15)
[2023-06-01] MEDS ORDERED: 0.9% NACL WITH KCL 20 MEQ/L 1,000 ML IV SCH (08:00)
[2023-06-01 08:45] LABS: Basophils # (A) 0.01 X 10*3/uL (0.00-0.10); Basophils % (A) 0.2 %; Eosinophils # (A) 0 X 10*3/uL (0.04-0.35); Eosinophils % (A) 0 %; HCT 37.8 % (37.2-46.3); HGB 12.4 g/dL (12.0-15.0); Lymphocytes # (A) 0.44 X 10*3/uL (0.90-5.00); Lymphocytes % (A) 9.2 %; MCH 28.8 pg (27.0-32.0); MCHC 32.8 g/dL (32.0-37.0); MCV 87.7 FL (80.0-97.0); Mean Platelet Volume 10.4 FL (9.5-12.2); Monocytes # (A) 0.19 X 10*3/uL (0.20-1.00); NRBC Per 100 WBC 0 X 10*3/uL (0.00-0.01); Neutrophils # (A) 4.12 X 10*3/uL (1.80-7.70); Platelet Count 218 X 10*3/uL (140-440); RBC 4.31 X 10*6/uL (4.10-5.20); RDW 14.5 % (11.5-14.5); WBC 4.79 X 10*3/uL (4.50-10.00)
[2023-06-01 08:50] LABS: Blood Urea Nitrogen 13.6 mg/dL (9.0-27.0); Calcium 8.8 mg/dL (8.7-10.3); Carbon Dioxide 21.2 mmol/L (21.6-31.8); Chloride 100 mmol/L (96-109); Magnesium 1.8 mg/dL (1.5-2.4); Phosphorus 2.9 mg/dL (2.4-5.1); Potassium 4.8 mmol/L (3.5-5.5); Sodium 133 mmol/L (135-145)
[2023-06-01] MEDS ORDERED: atenoloL 50 MG TAB PO SCH (09:00)
[2023-06-01] MEDS ORDERED: lisinopriL 10 MG TAB PO SCH (09:00)
[2023-06-01] MEDS ORDERED: PANTOPRAZOLE 40 MG/10 ML VIAL IV SCH (09:00)
[2023-06-01] MEDS ORDERED: ENOXAPARIN 40 MG/0.4 ML SYRINGE SQ SCH (09:00)
[2023-06-01] MEDS: LACTATED RINGERS 1,000 ML IV SCH (09:02)
[2023-06-01 10:38] VITALS: BP 125/76; RESP 20; TEMP 97.4
[2023-06-01 11:03] VITALS: BMI 72.2
--- NOTE | 2023-06-01 12:22 | FL ---
EXAMINATION TYPE: FL single contrast UGI DATE OF EXAM: 06/01/2023 COMPARISON: NONE HISTORY: 38-year-old female postop bariatric surgery, sleeve gastrectomy TECHNIQUE: A single contrast UGI study is performed. A total of 1 minute 1 seconds of fluoroscopic time was utilized during procedure and 20 images obtained. Total dose area product (DAP) in uGy*m?, m Gy*cm? (or similar): 923.3. FINDINGS: The patient swallowed oral contrast without difficulty or delay. Isovue 370 contrast materi al was utilized. There is normal course and caliber of the thoracic esophagus with prompt passage of contrast into the stomach. There are postoperative changes of sleeve gastrectomy demonstrated with co ntrast passing to the distal stomach and eventually into the duodenum. There is no extravasation of c ontrast to suggest leak. No free intraperitoneal air is seen. IMPRESSION: No evidence for leak or obstruction status post sleeve gastrectomy.
[2023-06-01 12:39] VITALS: PULSE 72
[2023-06-01] MEDS: fentaNYL PCA 500 MCG/50 ML BAG IV SCH (13:28)
--- NOTE | 2023-06-01 13:49 | P.DS ---
Providers Date of admission: 05/31/23 09:06 Expected date of discharge: 06/01/23 Attending physician: Jaymie Barfield Primary care physician: Bridgette Benites Hospital Course: Discharge diagnosis 1. Morbid obesity due to excess calories 2. Body mass index of 76.1 3. Osteoarthritis of the knees. 4. Osteoarthritis of the lower back. 5. Hypertensive heart disease. 6. Gastroesophageal reflux disease 7. Chronic obstructive pulmonary disease 8. Depressive disorder 9. Pseudotumor cerebri 10. Severe migraine 11. Motion sickness 12. Attention deficit disorder 13. Generalized anxiety disorder 14. Bipolar disorder 15. Posttraumatic stress disorder 16. ADHD Hospital course This is a 38-year-old female with known morbid obesity. She is status post Robotic-assisted laparoscopic sleeve gastrectomy. Patient tolerated surgery well. Her pain is controlled. Upper GI shows no evidence of leak or obstruction. She is tolerating diet. She has been up and ambulating. She is afebrile. She denies any difficulty urinating. She is stable for discharge. [facility] [employer] note has been reviewed by physician. Signing provider agrees with the documented findings, assessment, and plan of care. Procedures: OPERATION: 1. Robotic assisted daVinci Xi laparoscopic sleeve gastrectomy with 40-Tamazight bougie, multiport. 2. Intraoperative esophagogastroduodenoscopy. ANESTHESIA: Gen. local anesthetic ESTIMATED BLOOD LOSS: 5 mL SPECIMENS REMOVED: Sleeve gastrectomy COMPLICATIONS: None. FINDINGS: 1. Negative intraoperative esophagogastrojejunoscopy leak test. 2. Hepatomegaly with fatty liver disease and no large hiatus hernia. 3. Total of 7 staplers used including 2 - 60 mm black robot genet and 5 - 60 mm green robot loads used to create the gastric sleeve. 4. Sleeve gastrectomy, 28 x 6 cm Patient Condition at Discharge: Stable Plan - Discharge Summary Discharge Rx Participant: Yes New Discharge Prescriptions: New Acetaminophen Tab [Tylenol] 1,000 mg PO Q6HR PRN #30 tablet PRN Reason: Pain bisacodyL [Dulcolax] 5 mg PO DAILY PRN #10 tab PRN Reason: Constipation Simethicone 40 mg/0.6 ml Drops [Mylicon Drops] 40 mg PO PCHS PRN #30 ml PRN Reason: Gas Omeprazole [PriLOSEC] 40 mg PO DAILY #30 cap Ondansetron Odt [Zofran Odt] 4 mg PO Q8HR PRN #9 tab PRN Reason: Nausea Continue lisinopriL [Zestril] 10 mg PO QAM Loratadine 10 mg PO QAM Levothyroxine Sodium [Synthroid] 200 mcg PO QAM Albuterol Inhaler [Ventolin Hfa Inhaler] 1 - 2 puff INHALATION Q6H PRN PRN Reason: Dyspnea Budesonide/Formoterol Fumarate [Symbicort 80-4.5 Mcg Inhaler] 2 puff INHALATION BID Montelukast [Singulair] 5 mg PO QAM buPROPion HCL [buPROPion HCL SR] 300 mg PO QAM atenoloL 100 mg PO QAM lamoTRIgine [LaMICtal] 75 mg PO QAM busPIRone HCL 10 mg PO TID Levothyroxine Sodium 25 mcg PO QAM Discontinued Vitamin C/Biotin [Hair, Skin and Nails Chew] 1 tab PO DAILY Cholecalciferol (Vitamin D3) [Vitamin D3] 1,250 mcg PO Q30D Cranberry (Unknown Dose) 1 tab PO DAILY Vitamin B-12 (Unknown Dose) 1 tab PO DAILY Multivitamins, Thera [Multivitamin (formulary)] 1 tab PO DAILY Liraglutide [Saxenda] 6 ml SQ DAILY Discharge Medication List lisinopriL [Zestril] 10 mg PO QAM 07/17/16 [History] busPIRone HCL 10 mg PO TID 12/02/22 [History] lamoTRIgine [LaMICtal] 75 mg PO QAM 12/02/22 [History] Albuterol Inhaler [Ventolin Hfa Inhaler] 1 - 2 puff INHALATION Q6H PRN 01/06/23 [History] Budesonide/Formoterol Fumarate [Symbicort 80-4.5 Mcg Inhaler] 2 puff INHALATION BID 01/06/23 [History] Levothyroxine Sodium [Synthroid] 200 mcg PO QAM 01/06/23 [History] Loratadine 10 mg PO QAM 01/06/23 [History] Levothyroxine Sodium 25 mcg PO QAM 05/24/23 [History] Montelukast [Singulair] 5 mg PO QAM 05/24/23 [History] atenoloL 100 mg PO QAM 05/24/23 [History] buPROPion HCL [buPROPion HCL SR] 300 mg PO QAM 05/24/23 [History] Acetaminophen Tab [Tylenol] 1,000 mg PO Q6HR PRN #30 tablet 06/01/23 [Rx] Omeprazole [PriLOSEC] 40 mg PO DAILY #30 cap 06/01/23 [Rx] Ondansetron Odt [Zofran Odt] 4 mg PO Q8HR PRN #9 tab 06/01/23 [Rx] Simethicone 40 mg/0.6 ml Drops [Mylicon Drops] 40 mg PO PCHS PRN #30 ml 06/01/23 [Rx] bisacodyL [Dulcolax] 5 mg PO DAILY PRN #10 tab 06/01/23 [Rx] Follow up Appointment(s[facility]([facility] [facility] [place] - 06/04/23 9:00 am Patient Instructions/Handouts: Nutrition after Bariatric Surgery (DC), Laparoscopic Sleeve Gastrectomy (DC) Activity/Diet/Wound Care/Special Instructions: Liquid diet only for 2 weeks No lifting over 4 pounds in 4 weeks You May Shower. No soaking in bath tubs for 2 weeks Please notify your surgeon if you develop nausea and vomiting including new onset of abdominal pain. Continue to use incentive spirometry to prevent pneumonias. Please continue to ambulate at home to prevent blood clots in legs. Follow-up at the bariatric center. May shower. Dressings to be discontinued by surgeon in the office. Drink 64 oz of fluid daily. Start protein shakes on . Notify bariatric center for temp over 101.0, increased pain, drainage from incisions. No straws or carbonated beverages. Liquid diet only. Sugar content should be less than 6 g to avoid dumping syndrome. Take MOM for constipation. CRUSH, OPEN, OR CUT TABLETS LARGER THAN A SIZE OF A TIC TAC Do not take any vitamins until seen by surgeon due to increase bleeding risk Discharge Disposition: HOME SELF-CARE
[2023-06-02] MEDS ORDERED: bisacodyL 5 MG TABLET.DR PO PRN (08:00)
--- NOTE | 2023-06-28 18:06 | P.OP ---
Date of Procedure: 05/31/23 Description of Procedure: SURGEON: GERARDO GAMBLE MD PREOPERATIVE DIAGNOSES: 1. Morbid obesity due to excess calories 2. Body mass index of 72.2 3. Hypertensive heart disease 4. Depressive disorder 5. Chronic obstructive pulmonary disease due to asthma 6. Hypothyroidism 7. Osteoarthritis of the lower back 8. Osteoarthritis bilateral hips 9. Osteoarthritis metal knees 10. Pseudotumor cerebri 11. Migraines 12. Generalized anxiety disorder 13. Attention deficit disorder with ADHD 14. Bipolar disorder 15. Post traumatic stress disorder 16. Motion sickness 17. Obstructive sleep apnea POSTOPERATIVE DIAGNOSES: 1. Morbid obesity due to excess calories 2. Body mass index of 72.2 3. Hypertensive heart disease 4. Depressive disorder 5. Chronic obstructive pulmonary disease due to asthma 6. Hypothyroidism 7. Osteoarthritis of the lower back 8. Osteoarthritis bilateral hips 9. Osteoarthritis metal knees 10. Pseudotumor cerebri 11. Migraines 12. Generalized anxiety disorder 13. Attention deficit disorder with ADHD 14. Bipolar disorder 15. Post traumatic stress disorder 16. Motion sickness 17. Hepatomegaly with fatty liver disease 18. Obstructive sleep apnea OPERATION: 1. Robotic assisted daVinci Xi laparoscopic sleeve gastrectomy with 40-Cymro bougie, multiport. 2. Intraoperative esophagogastroduodenoscopy. ANESTHESIA: Gen. local anesthetic ESTIMATED BLOOD LOSS: 5 mL SPECIMENS REMOVED: Sleeve gastrectomy COMPLICATIONS: None. FINDINGS: 1. Negative intraoperative esophagogastrojejunoscopy leak test. 2. Hepatomegaly with fatty liver disease and no large hiatus hernia. 3. Total of 7 staplers used including 2 - 60 mm black robot genet and 5 - 60 mm green robot loads used to create the gastric sleeve. 4. Sleeve gastrectomy, 28 x 6 cm INDICATIONS: Jagdish Quintanilla is a 38-year-old female who comes with lifelong morbid obesity. She is looking into the sleeve gastrectomy. She has comorbidities including obstructive sleep apnea, hypertensive heart disease, osteoarthritis of the knees and back. At height of 5 feet 1 inches, her ideal body weight is 131 pounds. She comes in 403 pounds. Her body mass index is 76.1. She is 272 pounds overweight. All surgical options for morbid obesity had been described using the [place] bariatric surgery collaborative comorbidity resolution including complication risk score. A second-generation bariatric consent form was described in detail including the possibility of protein malnutrition, leaks, gastric stricture, venous thrombosis, gastroesophageal reflux disease, need for further surgery for which she demonstrated understanding. Benefits and risks of the procedure were described at length. Informed consent was obtained. DESCRIPTION: The patient was brought into the operating room theater. Preoperatively she had received Lovenox subcutaneously for DVT prophylaxis. Additionally she had Peridex oral solution as an oral decontaminant. After general induction, the abdomen was prepped and draped in standard sterile fashion. An Ioban draping was placed along the abdomen. A robotic da Clemencia Xi system was prepped and primed. At 15 cm from the xiphoid, proposed port sites were marked with indelible marker along the anterior axillary line bilaterally, mid axillary line bilaterally with each ports were marked 10 to 15 cm from each other. The robotic stapler port was marked for the right midclavicular line. A 5 mm 0 degrees laparoscopic trocar entry was performed along the left upper quadrant. The abdomen was insufflated to 15 mmHg pressure was tolerated well. Diagnostic laparoscopy demonstrated no injury to bowel, viscera, or mesentery. No evidence of large hiatus hernia was identified. The liver edge was sharp consistent with 2 week low-carb high-protein diet. A 8 mm port was placed along the left upper abdominal wall after exchanging the 5 mm port. A separate 8 mm port was placed along the left lateral abdominal wall. Please note that the ports were placed at least 20 cm away from the target anatomy. Care was taken to check each robotic arms were safely away from collision with the bed or the patient. At the epigastrium, a medium sized Nancy liver retractor was placed under direct visualization with the Iron Export Clerk placed under the right shoulder of the patient. Next, 12-mm robot stapler port was placed along the right upper quadrant. The camera 8-mm port was maintained along the epigastrium. The patient was repositioned in reverse Trendelenburg position at 21-degrees after lowering the bed. The robot was docked along the left side of the patient. Using a grasper for arm 4, a vessel sealer for arm 3, including grasper for arm 1, the robotic system was docked and primed as described. Instruments were interchanged by the university administrative assistant for stapler loads. The camera was placed at 30- degrees down. I had sat at the console. The pylorus was identified and 6 cm proximally along the greater curvature of the stomach, the short gastrics were mobilized upwards to the angle of His using a vessel sealer. Hemostasis was excellent during this portion of the procedure. Next, the upper pole of the stomach was adherent to the left oneal, which was gently dissected free using atraumatic grasper. I went to the head of the bed and placed 40-Cymro blunt bougie into the stomach. The bougie was readjusted by the nurse police radio dispatcher. Robotic stapler black load 60 mm 2 followed by green 60 mm x 5 loads were used to create the sleeve. Initial firing was across the antrum of the stomach towards the angle of His. The staple line was linear without corkscrewing. The space from the angularis incisura of the sleeve was approximately 4 cm. I then went to the head of the bed to perform the intraoperative esophagogastroduodenoscopy leak test. The bougie was withdrawn. The upper pole of the stomach was bathed using normal saline solution. The scope was withdrawn with careful inspection along the staple line for which no leaks were found along the entire length. Additionally,the sleeve was completely hemostatic without any encroachment along the angularis incisura. Its topology was a soft "J". No stricture was encountered upon placement of the scope. The GI tract was desufflated. The patient tolerated this portion of the procedure well. The scope was completely withdrawn. The robot was undocked. I then rescrubbed into case, whereby the irrigation fluid was aspirated from the abdominal cavity. Tisseel fibrin sealant was placed along the entire staple length. Once dried the Nancy liver retractor was removed. Attention was now brought to removal of the specimen. The distal end of the sleeve gastrectomy specimen was brought out through the 12 mm port at the left upper quadrant. The specimen was gently removed en total. No contamination had occurred during this process. All instruments and pneumoperitoneum including irrigation fluid was removed from the abdominal cavity. The 12 mm port site was closed using 0-Vicryl and Brent Mendenhall and irrigated with diluted hydrogen peroxide. The final incisions were closed using subcuticular interrupted suture of 4-0 Monocryl. Exofin was applied to the skin once the skin had been cleansed. OptiFoam dressing was placed along the stomach extraction site. The sleeve specimen was measured and checked also for leaks which none were found. At the end of the procedure, needle, sponge, and instrument count was verified correct by the surgical tech. The patient was taken to the postanesthesia care unit in stable condition. She had tolerated the procedure well. Intraoperative films and findings were reviewed with the patient's family.
== END 2023-06-01 15:49 | disposition home or self-care (01) | DRG 403 ==
LOC: 2ORMAIN 09:06 → 4SSUR 16:09
PROVIDERS: ADMIT Surgery Plastic and Reconstructive Surgery; ATTEND Surgery Plastic and Reconstructive Surgery
PROC: 8E0W4CZ Robotic Assisted Procedure of Trunk Region, Percutaneous Endoscopic Approach (ICD-10-PCS; 2023-05-31)
PROC: 0DJ08ZZ Inspection of Upper Intestinal Tract, Via Natural or Artificial Opening Endoscopic (ICD-10-PCS; 2023-05-31)
PROC: 0DB64Z3 Excision of Stomach, Percutaneous Endoscopic Approach, Vertical (ICD-10-PCS; principal; 2023-05-31 10:20)
DX: E66.01 Morbid (severe) obesity due to excess calories (principal); I11.9 Hypertensive heart disease without heart failure; E03.9 Hypothyroidism, unspecified; Z68.45 Body mass index [BMI] 70 or greater, adult; F31.9 Bipolar disorder, unspecified; G47.33 Obstructive sleep apnea (adult) (pediatric); K76.0 Fatty (change of) liver, not elsewhere classified; M47.9 Spondylosis, unspecified; M17.0 Bilateral primary osteoarthritis of knee; M47.816 Spondylosis without myelopathy or radiculopathy, lumbar region; K21.9 Gastro-esophageal reflux disease without esophagitis; J44.89 Other specified chronic obstructive pulmonary disease; G93.2 Benign intracranial hypertension; G43.909 Migraine, unspecified, not intractable, without status migrainosus; T75.3XXA Motion sickness, initial encounter; F41.1 Generalized anxiety disorder; F43.10 Post-traumatic stress disorder, unspecified; F90.9 Attention-deficit hyperactivity disorder, unspecified type; H54.8 Legal blindness, as defined in USA; M16.0 Bilateral primary osteoarthritis of hip; Z79.890 Hormone replacement therapy; Z79.51 Long term (current) use of inhaled steroids; Z87.891 Personal history of nicotine dependence; Z98.2 Presence of cerebrospinal fluid drainage device; Z79.899 Other long term (current) drug therapy; Z91.040 Latex allergy status; Z88.5 Allergy status to narcotic agent
CPT/HCPCS: 74240; 80051; 80053; 81025; 82310; 82565; 83735; 84100; 84520; 85025; 88307; 94640; 94760

== ENCOUNTER → 2023-06-04 | Outpatient (CLI) | payer OTHER ==
[2023-06-04 10:11] VITALS: BP 126/76; PULSE 69; RESP 12; TEMP 98.3; BMI 68.8
--- NOTE | 2023-06-04 18:00 | P.PN ---
Progress Note - Text Progress Note Date: 06/04/23 Patient seen by nurse only.
== END ==
LOC: BARWHC3 08:55
PROVIDERS: ATTEND Surgery Plastic and Reconstructive Surgery
DX: E66.01 Morbid (severe) obesity due to excess calories (principal); F17.200 Nicotine dependence, unspecified, uncomplicated; Z68.44 Body mass index [BMI] 60.0-69.9, adult; Z91.040 Latex allergy status; Z88.5 Allergy status to narcotic agent
CPT/HCPCS: 99211

== ENCOUNTER → 2023-06-09 | Outpatient (CLI) | payer OTHER ==
[2023-06-09 13:41] VITALS: BP 170/85; PULSE 71; TEMP 98.1; BMI 66.4
--- NOTE | 2023-06-09 14:06 | P.BASOAP ---
Subjective Progress Note Date: 06/09/23 DATE OF SERVICE: 06/09/23 CHIEF COMPLAINT: Status post sleeve gastrectomy HISTORY OF PRESENT ILLNESS: Jagdish Quintanilla is a 38-year-old female status post sleeve gastrectomy, 05/31/2023. She is over 1 week postop. Denies gastroesophageal reflux disease. She is using sips of fluids. Her protein intake is 60 grams daily. Pain is well-controlled. She reports bowel movements. At height of 5 feet 1 inches, her ideal body weight is 140 pounds. She comes in 375 pounds from 388 pounds 1 week ago. She has lost 13 pounds in 1 week. Her highest weight is 402 pounds. Her body mass index was 71.4. Her current body mass index is 66.4. Lifetime weight loss is 27 pounds. Lifetime percent excess weight loss is 10%. She is 235 pounds overweight. PHYSICAL EXAM: VITAL SIGNS: Height 5 foot 3 inches, weight 375 pounds. BMI 66.4 Vital Signs Temp 98.1 F 06/09/23 13:24 Pulse 71 06/09/23 13:24 Resp BP 170/85 06/09/23 13:24 Pulse Ox FiO2 GENERAL: Well-developed in no acute distress. HEENT: No scleral icterus. Extraocular movements grossly intact. Hears conversational speech. No nasal drainage. NECK: Supple without lymphadenopathy. CHEST: Nonlabored respirations with equal bilateral excursions. CARDIOVASCULAR: Regular rate and regular rhythm. Distal 2+ pulses. ABDOMEN: Incisions clean dry and intact. No infection. MUSCULOSKELETAL: No clubbing, cyanosis. NEURO: No focal or lateralizing signs. Cranial nerves 2 through 12 grossly within normal limits. PSYCH: Appropriate affect. Alert and oriented to person, place and time. SKIN: Good skin turgor. Well perfused. ASSESSMENT: 1. Morbid obesity due to excess calories 2. Body mass index of 76.1 to 66.4 3. Osteoarthritis of the knees. 4. Osteoarthritis of the lower back. 5. Hypertensive heart disease. 6. Gastroesophageal reflux disease 7. Chronic obstructive pulmonary disease 8. Depressive disorder 9. Pseudotumor cerebri 10. Severe migraine 11. Motion sickness 12. Attention deficit disorder 13. Generalized anxiety disorder 14. Bipolar disorder 15. Posttraumatic stress disorder 16. ADHD 17. Status post sleeve gastrectomy. 18. Hypothyroidism 19. Past tobacco abuse disorder PLAN: 1. Her protein intake is fair but increased from 60 g to 75 g daily advised. 2. She is doing well with fluids and continue at least 64 ounces of fluids daily. 3. Recommend labs at 1 month follow up. Objective - Vital Signs Vital signs: Vital Signs Temp 98.1 F 06/09/23 13:24 Pulse 71 06/09/23 13:24 Resp BP 170/85 06/09/23 13:24 Pulse Ox FiO2 Intake & Output 06/08/23 06/09/23 06/09/23 18:59 06:59 18:59 Weight 170.097 kg Assessment/Plan Plan: Date: 06/09/23 Initial Weight: Initial BMI: Current Weight: 170.097 kg Current BMI: 66.4 Type of Surgery: Total Volume in Band: Previous Volume: Volume Removed: Volume Added: Band Size:
== END ==
LOC: BARWHC3 13:15
PROVIDERS: ATTEND Surgery Plastic and Reconstructive Surgery
DX: K21.9 Gastro-esophageal reflux disease without esophagitis (principal); E66.01 Morbid (severe) obesity due to excess calories; M17.0 Bilateral primary osteoarthritis of knee; I11.9 Hypertensive heart disease without heart failure; M47.816 Spondylosis without myelopathy or radiculopathy, lumbar region; J44.9 Chronic obstructive pulmonary disease, unspecified; G43.909 Migraine, unspecified, not intractable, without status migrainosus; F98.8 Other specified behavioral and emotional disorders with onset usually occurring in childhood and adolescence; F41.1 Generalized anxiety disorder; F31.9 Bipolar disorder, unspecified; F90.9 Attention-deficit hyperactivity disorder, unspecified type; F43.10 Post-traumatic stress disorder, unspecified; E03.9 Hypothyroidism, unspecified; T75.3XXA Motion sickness, initial encounter; G93.2 Benign intracranial hypertension; F17.200 Nicotine dependence, unspecified, uncomplicated; Z98.84 Bariatric surgery status; Z71.3 Dietary counseling and surveillance; Z68.44 Body mass index [BMI] 60.0-69.9, adult; Z91.040 Latex allergy status; Z88.5 Allergy status to narcotic agent; Z79.890 Hormone replacement therapy; Z79.899 Other long term (current) drug therapy
CPT/HCPCS: 97802; G0463; 99211

== ENCOUNTER → 2023-06-30 | Outpatient (CLI) | payer OTHER ==
[2023-06-30 13:42] VITALS: BP 129/85; PULSE 55; TEMP 97.7; BMI 66.9
--- NOTE | 2023-06-30 13:56 | P.BASOAP ---
Subjective Progress Note Date: 06/30/23 DATE OF SERVICE: 06/30/23 CHIEF COMPLAINT: Status post sleeve gastrectomy HISTORY OF PRESENT ILLNESS: Jagdish Quintanilla is a 38-year-old female status post sleeve gastrectomy, 05/31/2023. She is 1 month postop. She is down from 403 pounds to 378 pounds. She was sick and had feels bloated. Protein intake 65 grams. She reports troubles with her sinuses. She takes Claritin. She is using steaming. She was taking Saxenda prior to surgery. At height of 5 feet 3 inches, her ideal body weight is 140 pounds. She comes in 378 pounds from 375 pounds, 2 weeks ago. She has gained 4 pounds in 1 week. Her highest weight is 465 pounds. Her body mass index was 82.5. Her current body mass index is 67.0. Lifetime weight loss is 87 pounds. Lifetime percent excess weight loss is 27%. She is 238 pounds overweight. PHYSICAL EXAM: VITAL SIGNS: Height 5 foot 3 inches, weight 378 pounds. BMI 67.0 Vital Signs Temp 97.7 F 06/30/23 13:23 Pulse 55 L 06/30/23 13:23 Resp BP 129/85 06/30/23 13:23 Pulse Ox FiO2 GENERAL: Well-developed in no acute distress. HEENT: No scleral icterus. Extraocular movements grossly intact. Hears conversational speech. No nasal drainage. NECK: Supple without lymphadenopathy. CHEST: Nonlabored respirations with equal bilateral excursions. CARDIOVASCULAR: Regular rate and regular rhythm. Distal 2+ pulses. ABDOMEN: Incisions clean dry and intact. No infection. MUSCULOSKELETAL: No clubbing, cyanosis. NEURO: No focal or lateralizing signs. Cranial nerves 2 through 12 grossly within normal limits. PSYCH: Appropriate affect. Alert and oriented to person, place and time. SKIN: Good skin turgor. Well perfused. ASSESSMENT: 1. Morbid obesity due to excess calories 2. Body mass index of 82.5 to 67.0 3. Osteoarthritis of the knees. 4. Osteoarthritis of the lower back. 5. Hypertensive heart disease. 6. Gastroesophageal reflux disease 7. Chronic obstructive pulmonary disease 8. Depressive disorder 9. Pseudotumor cerebri 10. Severe migraine 11. Motion sickness 12. Attention deficit disorder 13. Generalized anxiety disorder 14. Bipolar disorder 15. Posttraumatic stress disorder 16. ADHD 17. Status post sleeve gastrectomy. 18. Hypothyroidism 19. Past tobacco abuse disorder PLAN: 1. Her protein intake is low and recommended increase to 75 grams. 2. May plan in 3 months to restart saxenda use. 3. Her protein intake is fair but increase from 60 g to 75 g daily advised. 4. She is doing well with fluids and continue at least 64 ounces of fluids daily. 5. Recommend labs at 1 month follow up. Objective - Vital Signs Vital signs: Vital Signs Temp 97.7 F 06/30/23 13:23 Pulse 55 L 06/30/23 13:23 Resp BP 129/85 06/30/23 13:23 Pulse Ox FiO2 Intake & Output 06/29/23 06/30/23 06/30/23 18:59 06:59 18:59 Weight 171.458 kg Assessment/Plan Plan: Date: 06/30/23 Initial Weight: Initial BMI: Current Weight: 171.458 kg Current BMI: 66.9 Type of Surgery: Total Volume in Band: Previous Volume: Volume Removed: Volume Added: Band Size:
== END ==
LOC: BARWHC3 13:15
PROVIDERS: ATTEND Surgery Plastic and Reconstructive Surgery
DX: K21.9 Gastro-esophageal reflux disease without esophagitis (principal); E66.01 Morbid (severe) obesity due to excess calories; M17.0 Bilateral primary osteoarthritis of knee; M47.816 Spondylosis without myelopathy or radiculopathy, lumbar region; I11.9 Hypertensive heart disease without heart failure; J44.9 Chronic obstructive pulmonary disease, unspecified; G43.909 Migraine, unspecified, not intractable, without status migrainosus; F98.8 Other specified behavioral and emotional disorders with onset usually occurring in childhood and adolescence; F41.1 Generalized anxiety disorder; F31.9 Bipolar disorder, unspecified; F43.10 Post-traumatic stress disorder, unspecified; F90.9 Attention-deficit hyperactivity disorder, unspecified type; T75.3XXA Motion sickness, initial encounter; G93.2 Benign intracranial hypertension; F17.200 Nicotine dependence, unspecified, uncomplicated; E03.9 Hypothyroidism, unspecified; Z71.3 Dietary counseling and surveillance; Z98.84 Bariatric surgery status; Z68.44 Body mass index [BMI] 60.0-69.9, adult; Z88.5 Allergy status to narcotic agent; Z91.040 Latex allergy status; Z79.890 Hormone replacement therapy; Z79.899 Other long term (current) drug therapy
CPT/HCPCS: 97803; G0463; 99211

== ENCOUNTER → 2023-07-03 | Outpatient (CLI) | payer OTHER ==
[2023-07-03 11:31] LABS: INR 0.9 (<1.2); Partial Thromboplastin Time 25.9 sec (22.0-30.0); Prothrombin Time 10.1 sec (10.0-12.5)
[2023-07-03 23:03] LABS: HCT 40.1 % (37.2-46.3); HGB 12.4 g/dL (12.0-15.0); MCH 27.4 pg (27.0-32.0); MCHC 30.9 g/dL (32.0-37.0); MCV 88.7 FL (80.0-97.0); NRBC Per 100 WBC 0 X 10*3/uL (0.00-0.01); Platelet Count 260 X 10*3/uL (140-440); RBC 4.52 X 10*6/uL (4.10-5.20); RDW 13.9 % (11.5-14.5); WBC 6.08 X 10*3/uL (4.50-10.00)
[2023-07-03 23:16] LABS: Prealbumin 20.3 mg/dL (18.0-42.0)
[2023-07-04 00:04] LABS: ALT 25 U/L (8-44); AST 27 U/L (13-35); Albumin 4.1 g/dL (3.8-4.9); Albumin/Globulin Ratio 1.46 Ratio (1.60-3.17); Alkaline Phosphatase 67 U/L (41-126); BUN/Creat Ratio 10.55 Ratio (12.00-20.00); Blood Urea Nitrogen 11.6 mg/dL (9.0-27.0); Calcium 9.2 mg/dL (8.7-10.3); Carbon Dioxide 22.8 mmol/L (21.6-31.8); Chloride 105 mmol/L (96-109); Chol/HDL Ratio 4.39 Ratio; Globulin 2.8 g/dL (1.6-3.3); Glucose 90 mg/dL (70-110); Iron 54 UG/DL (50-170); LDL Cholesterol,Calculated 74.2 mg/dL (0.0-131.0); Magnesium 2.1 mg/dL (1.5-2.4); Phosphorus 2.7 mg/dL (2.4-5.1); Sodium 142 mmol/L (135-145); Total Bilirubin 0.5 mg/dL (0.3-1.2); Total Iron Binding Capacity 314 UG/DL (228-460); Total Protein 6.9 g/dL (6.2-8.2)
== END | disposition home or self-care (01) ==
LOC: LABWHC1 09:56
PROVIDERS: ATTEND Surgery Plastic and Reconstructive Surgery
DX: E66.01 Morbid (severe) obesity due to excess calories (principal); D50.8 Other iron deficiency anemias; K91.2 Postsurgical malabsorption, not elsewhere classified; E46 Unspecified protein-calorie malnutrition; E44.0 Moderate protein-calorie malnutrition; E44.1 Mild protein-calorie malnutrition; E45 Retarded development following protein-calorie malnutrition; K74.1 Hepatic sclerosis; N19 Unspecified kidney failure; T56.894A Toxic effect of other metals, undetermined, initial encounter; K50.90 Crohn's disease, unspecified, without complications
CPT/HCPCS: 36415; 80053; 80061; 82306; 82525; 82607; 82728; 82746; 83036; 83540; 83550; 83735; 83970; 84100; 84134; 84255; 84425; 84443; 84590; 84630; 85027; 85610; 85730

== ENCOUNTER → 2023-07-19 | Outpatient (CLI) | payer OTHER | END | disposition home or self-care (01) | LOC: RADXRMAIN 09:09 | PROVIDERS: ATTEND Surgery Plastic and Reconstructive Surgery | DX: E66.01 Morbid (severe) obesity due to excess calories (principal); K50.90 Crohn's disease, unspecified, without complications; K90.9 Intestinal malabsorption, unspecified; K90.89 Other intestinal malabsorption; N19 Unspecified kidney failure; T56.894A Toxic effect of other metals, undetermined, initial encounter | CPT/HCPCS: 84630 ==

== ENCOUNTER → 2023-09-15 | Outpatient (CLI) | payer OTHER ==
[2023-09-15 14:36] VITALS: BP 135/83; PULSE 67; RESP 16; TEMP 98.1; BMI 62.8
--- NOTE | 2023-09-15 15:09 | P.BASOAP ---
Subjective Progress Note Date: 09/15/23 She is chugging water. Weight loss of 30 # in 3 months. Rare reflux. She is 80 to 100 g protein daily. She uses [employer]. Sometimes 135 g. Water over 64 oz daily. Steps 4000 steps. Calories 1600 1000 to 900 calories. Objective - Vital Signs Vital signs: Vital Signs Temp 98.1 F 09/15/23 14:18 Pulse 67 09/15/23 14:18 Resp 16 09/15/23 14:18 BP 135/83 09/15/23 14:18 Pulse Ox FiO2 Intake & Output 09/14/23 09/15/23 09/15/23 18:59 06:59 18:59 Weight 161.025 kg Assessment/Plan Plan: Date: 09/15/23 Initial Weight: 182.798 kg Initial BMI: 71.4 Current Weight: 161.025 kg Current BMI: 62.8 Type of Surgery: Vertical Sleeve Gastrectomy Total Volume in Band: Previous Volume: Volume Removed: Volume Added: Band Size:
== END ==
LOC: BARWHC3 13:37
PROVIDERS: ATTEND Surgery Plastic and Reconstructive Surgery
DX: E66.01 Morbid (severe) obesity due to excess calories (principal); Z53.9 Procedure and treatment not carried out, unspecified reason
CPT/HCPCS: 97803; G0463; 99211

== ENCOUNTER → 2023-09-27 | Outpatient (CLI) | payer OTHER ==
[2023-09-27 12:34] LABS: INR 0.9 (<1.2); Prothrombin Time 10.4 sec (10.0-12.5)
[2023-09-27 17:10] LABS: HCT 43.2 % (37.2-46.3); HGB 13.9 g/dL (12.0-15.0); MCH 27.9 pg (27.0-32.0); MCHC 32.2 g/dL (32.0-37.0); MCV 86.7 FL (80.0-97.0); Mean Platelet Volume 10.4 FL (9.5-12.2); NRBC Per 100 WBC 0 X 10*3/uL (0.00-0.01); Platelet Count 268 X 10*3/uL (140-440); RBC 4.98 X 10*6/uL (4.10-5.20); RDW 13.9 % (11.5-14.5); WBC 3.99 X 10*3/uL (4.50-10.00)
[2023-09-27 19:58] LABS: % Iron Saturation 27.15 (12.00-45.00); ALT 27 U/L (8-44); AST 28 U/L (13-35); Albumin 4.3 g/dL (3.8-4.9); Albumin/Globulin Ratio 1.34 Ratio (1.60-3.17); Alkaline Phosphatase 74 U/L (41-126); Blood Urea Nitrogen 14.8 mg/dL (9.0-27.0); Calcium 9.7 mg/dL (8.7-10.3); Carbon Dioxide 22.1 mmol/L (21.6-31.8); Chloride 108 mmol/L (96-109); Chol/HDL Ratio 5.03 Ratio; Globulin 3.2 g/dL (1.6-3.3); Glucose 97 mg/dL (70-110); Iron 79 UG/DL (50-170); LDL Cholesterol,Calculated 85.2 mg/dL (0.0-131.0); Phosphorus 2.8 mg/dL (2.4-5.1); Potassium 3.7 mmol/L (3.5-5.5); Sodium 142 mmol/L (135-145); Total Bilirubin 0.4 mg/dL (0.3-1.2); Total Iron Binding Capacity 291 UG/DL (228-460); Total Protein 7.5 g/dL (6.2-8.2)
[2023-09-27 21:14] LABS: Prealbumin 19.8 mg/dL (18.0-42.0)
[2023-09-28 08:36] LABS: Zinc, Serum 79 ug/dL (60-130)
[2023-09-29 07:00] LABS: Vitamin A 42 ug/dL (38-106)
[2023-09-29 07:05] LABS: Vit B1(Thiamine) 44 ug/L (38-122)
== END | disposition home or self-care (01) ==
LOC: LABWHC1 11:20
PROVIDERS: ATTEND Surgery Plastic and Reconstructive Surgery
DX: E66.01 Morbid (severe) obesity due to excess calories (principal); E89.1 Postprocedural hypoinsulinemia; D50.8 Other iron deficiency anemias; K91.2 Postsurgical malabsorption, not elsewhere classified; E44.0 Moderate protein-calorie malnutrition; E44.1 Mild protein-calorie malnutrition; E55.9 Vitamin D deficiency, unspecified; K74.1 Hepatic sclerosis; N19 Unspecified kidney failure; T56.894A Toxic effect of other metals, undetermined, initial encounter; K50.90 Crohn's disease, unspecified, without complications
CPT/HCPCS: 36415; 80053; 80061; 82306; 82525; 82607; 82728; 82746; 83036; 83540; 83550; 83735; 83970; 84100; 84134; 84255; 84425; 84443; 84590; 84630; 85027; 85610; 85730

== ENCOUNTER → 2023-10-25 | Outpatient (CLI) | payer OTHER ==
[2023-10-25 14:31] LABS: Basophils # (A) 0.03 X 10*3/uL (0.00-0.10); Basophils % (A) 0.6 %; Eosinophils # (A) 0.13 X 10*3/uL (0.04-0.35); Eosinophils % (A) 2.7 %; HGB 13.1 g/dL (12.0-15.0); Lymphocytes # (A) 1.08 X 10*3/uL (0.90-5.00); Lymphocytes % (A) 22.5 %; MCH 28.4 pg (27.0-32.0); MCV 88.7 FL (80.0-97.0); Mean Platelet Volume 10.1 FL (9.5-12.2); Monocytes # (A) 0.32 X 10*3/uL (0.20-1.00); Monocytes % (A) 6.7 %; NRBC Per 100 WBC 0 X 10*3/uL (0.00-0.01); Neutrophils # (A) 3.23 X 10*3/uL (1.80-7.70); Neutrophils % (A) 67.3 %; Platelet Count 251 X 10*3/uL (140-440); RBC 4.62 X 10*6/uL (4.10-5.20); RDW 14.1 % (11.5-14.5)
[2023-10-25 15:18] LABS: ALT 34 U/L (8-44); AST 27 U/L (13-35); Albumin 4.1 g/dL (3.8-4.9); Albumin/Globulin Ratio 1.41 Ratio (1.60-3.17); Alkaline Phosphatase 71 U/L (41-126); Calcium 9.3 mg/dL (8.7-10.3); Carbon Dioxide 21.6 mmol/L (21.6-31.8); Chloride 108 mmol/L (96-109); Chol/HDL Ratio 4.61 Ratio; Globulin 2.9 g/dL (1.6-3.3); Glucose 97 mg/dL (70-110); LDL Cholesterol,Calculated 70.3 mg/dL (0.0-131.0); Potassium 3.9 mmol/L (3.5-5.5); Sodium 141 mmol/L (135-145); T4, Free (Free Thyroxine) 1.25 ng/dL (0.80-1.80); Total Bilirubin 0.4 mg/dL (0.3-1.2)
== END | disposition home or self-care (01) ==
LOC: LABWHC1 10:14
PROVIDERS: ATTEND Student in an Organized Health Care Education/Training Program
DX: E03.9 Hypothyroidism, unspecified (principal); Z79.899 Other long term (current) drug therapy
CPT/HCPCS: 36415; 80053; 80061; 82306; 83036; 84439; 84443; 85025

== ENCOUNTER → 2023-12-08 | Outpatient (CLI) | payer OTHER ==
--- NOTE | 2023-12-08 14:37 | P.BASOAP ---
Subjective Progress Note Date: 12/08/23 She has lost 80 pounds in 9 months. Highest weight is 505 pounds. Lost 100 pounds already. She reports chronic reflux, "I eat spicey foods all the time." She wants to get down to 199. She has no specific goals for weight loss. She has a food journal with protein 65 to 80 grams. Calories 900 to 1000. She is 75 grams. US gallbladder and take omeprazole. Assessment/Plan Plan: Date: Initial Weight: 182.798 kg Initial BMI: Current Weight: Current BMI: Type of Surgery: Total Volume in Band: Previous Volume: Volume Removed: Volume Added: Band Size:
[2023-12-08 14:55] VITALS: BMI 57.4
[2023-12-08 16:16] VITALS: BP 125/82; PULSE 71; TEMP 97.7
== END ==
LOC: BARWHC3 13:36
PROVIDERS: ATTEND Surgery Plastic and Reconstructive Surgery
DX: E66.01 Morbid (severe) obesity due to excess calories (principal); K21.9 Gastro-esophageal reflux disease without esophagitis; Z71.3 Dietary counseling and surveillance; Z87.891 Personal history of nicotine dependence; Z98.84 Bariatric surgery status; Z90.3 Acquired absence of stomach [part of]; Z91.040 Latex allergy status; Z88.5 Allergy status to narcotic agent; Z68.43 Body mass index [BMI] 50.0-59.9, adult
CPT/HCPCS: 97803; G0463; 99211

== ENCOUNTER → 2023-12-24 | Outpatient (CLI) | payer OTHER ==
[2023-12-24 08:18] LABS: INR 0.9 (<1.2); Partial Thromboplastin Time 24.3 sec (22.0-30.0); Prothrombin Time 10.3 sec (10.0-12.5)
[2023-12-24 10:31] LABS: HCT 42.2 % (37.2-46.3); HGB 13.2 g/dL (12.0-15.0); MCH 27.9 pg (27.0-32.0); MCHC 31.3 g/dL (32.0-37.0); MCV 89.2 FL (80.0-97.0); Mean Platelet Volume 10.1 FL (9.5-12.2); NRBC Per 100 WBC 0 X 10*3/uL (0.00-0.01); Platelet Count 273 X 10*3/uL (140-440); RBC 4.73 X 10*6/uL (4.10-5.20); RDW 13.5 % (11.5-14.5); WBC 6.78 X 10*3/uL (4.50-10.00)
[2023-12-24 11:17] LABS: % Iron Saturation 26.79 (12.00-45.00); ALT 27 U/L (8-44); AST 23 U/L (13-35); Albumin 4.3 g/dL (3.8-4.9); Albumin/Globulin Ratio 1.43 Ratio (1.60-3.17); Alkaline Phosphatase 74 U/L (41-126); BUN/Creat Ratio 16.11 Ratio (12.00-20.00); Blood Urea Nitrogen 14.5 mg/dL (9.0-27.0); Calcium 9.3 mg/dL (8.7-10.3); Carbon Dioxide 23.2 mmol/L (21.6-31.8); Chloride 106 mmol/L (96-109); Glucose 88 mg/dL (70-110); Iron 75 UG/DL (50-170); LDL Cholesterol,Calculated 76.2 mg/dL (0.0-131.0); Magnesium 2.2 mg/dL (1.5-2.4); Phosphorus 3.4 mg/dL (2.4-5.1); Potassium 3.9 mmol/L (3.5-5.5); Sodium 141 mmol/L (135-145); Total Bilirubin 0.6 mg/dL (0.3-1.2); Total Iron Binding Capacity 280 UG/DL (228-460); Total Protein 7.3 g/dL (6.2-8.2)
[2023-12-24 11:29] LABS: Prealbumin 18.1 mg/dL (18.0-42.0)
== END | disposition home or self-care (01) ==
LOC: LABWHC1 07:29
PROVIDERS: ATTEND Surgery Plastic and Reconstructive Surgery
DX: E66.01 Morbid (severe) obesity due to excess calories (principal); E89.1 Postprocedural hypoinsulinemia; D50.8 Other iron deficiency anemias; K91.2 Postsurgical malabsorption, not elsewhere classified; E44.0 Moderate protein-calorie malnutrition; E44.1 Mild protein-calorie malnutrition; E45 Retarded development following protein-calorie malnutrition; E55.9 Vitamin D deficiency, unspecified; K74.1 Hepatic sclerosis; N19 Unspecified kidney failure; T56.894A Toxic effect of other metals, undetermined, initial encounter; K50.90 Crohn's disease, unspecified, without complications
CPT/HCPCS: 36415; 80053; 80061; 82306; 82525; 82607; 82728; 82746; 83036; 83540; 83550; 83735; 83970; 84100; 84134; 84255; 84425; 84443; 84590; 84630; 85027; 85610; 85730

== ENCOUNTER → 2023-12-24 | Outpatient (CLI) | payer OTHER ==
--- NOTE | 2023-12-24 22:22 | US ---
EXAMINATION TYPE: US gallbladder DATE OF EXAM: 12/24/2023 COMPARISON: NONE CLINICAL INDICATION: Female, 38 years old with history of K80.10 CALCULUS OF GALLBLADDER; Heartburn, bariatric surgery 06/19 TECHNIQUE: Multiple sonographic images of the right upper quadrant are obtained. FINDINGS: EXAM MEASUREMENTS: Liver Length: 18.5 cm Gallbladder Wall: 0.2 cm Right Kidney: 10.8 x 5.2 x 4.7 cm GAS WELL PUMPER NOTES: Technical limitations due to patient's body habitus and large amount of overlyin g bowel gas Pancreas: Obscured by bowel gas Liver: hyperechoic lesion left lobe = 2.5 x 2.0 x 2.3cm Gallbladder: multiple stones Evidence for sonographic Kinney's sign: no CBD: Obscured by overlying bowel gas Right Kidney: no evidence of hydronephrosis Pancreas is obscured by overlying bowel gas. Hyperechoic lesion identified within the left hepatic lo be measuring up to 2.5 cm. Multiple shadowing gallstones identified. No surrounding fluid or wall thi ckening identified. Negative sonographic Kinney sign. Common bile duct is obscured by overlying bowel gas. Right kidney demonstrates no hydronephrosis, nephrolithiasis, or solid mass. IMPRESSION: 1. Indeterminate hyperechoic left hepatic lobe 2.5 cm lesion. Probable hemangioma. Consider further e valuation with CT or MR abdomen liver mass protocol for definitive characterization. 2. Cholelithiasis without ultrasound evidence for acute cholecystitis. Nonvisualization of the common bile duct due to overlying bowel gas.
== END | disposition home or self-care (01) ==
LOC: RADUSWWP 06:56
PROVIDERS: ATTEND Surgery Plastic and Reconstructive Surgery
DX: K80.20 Calculus of gallbladder without cholecystitis without obstruction (principal)
CPT/HCPCS: 76705

== ENCOUNTER → 2024-01-25 | Outpatient (CLI) | payer OTHER ==
[2024-01-25 15:56] LABS: Basophils # (A) 0.04 X 10*3/uL (0.00-0.10); Basophils % (A) 0.6 %; Eosinophils # (A) 0.23 X 10*3/uL (0.04-0.35); Eosinophils % (A) 3.3 %; HCT 42.2 % (37.2-46.3); HGB 13.6 g/dL (12.0-15.0); Lymphocytes # (A) 1.04 X 10*3/uL (0.90-5.00); Lymphocytes % (A) 14.8 %; MCH 28.4 pg (27.0-32.0); MCHC 32.2 g/dL (32.0-37.0); MCV 88.1 FL (80.0-97.0); Mean Platelet Volume 10.6 FL (9.5-12.2); Monocytes # (A) 0.36 X 10*3/uL (0.20-1.00); Monocytes % (A) 5.1 %; NRBC Per 100 WBC 0 X 10*3/uL (0.00-0.01); Neutrophils # (A) 5.31 X 10*3/uL (1.80-7.70); Neutrophils % (A) 75.8 %; Platelet Count 264 X 10*3/uL (140-440); RBC 4.79 X 10*6/uL (4.10-5.20); RDW 13.8 % (11.5-14.5); WBC 7.01 X 10*3/uL (4.50-10.00)
[2024-01-25 16:18] LABS: ALT 22 U/L (8-44); AST 20 U/L (13-35); Albumin 4.4 g/dL (3.8-4.9); Albumin/Globulin Ratio 1.52 Ratio (1.60-3.17); Alkaline Phosphatase 80 U/L (41-126); BUN/Creat Ratio 16.75 Ratio (12.00-20.00); Blood Urea Nitrogen 13.4 mg/dL (9.0-27.0); Calcium 9.5 mg/dL (8.7-10.3); Carbon Dioxide 22.8 mmol/L (21.6-31.8); Chloride 107 mmol/L (96-109); Globulin 2.9 g/dL (1.6-3.3); Glucose 92 mg/dL (70-110); Potassium 3.9 mmol/L (3.5-5.5); Sodium 142 mmol/L (135-145); Total Bilirubin 0.5 mg/dL (0.3-1.2); Total Protein 7.3 g/dL (6.2-8.2)
== END | disposition home or self-care (01) ==
LOC: LABPAT 09:56
PROVIDERS: ATTEND Surgery Plastic and Reconstructive Surgery
DX: Z01.818 Encounter for other preprocedural examination (principal)
CPT/HCPCS: 80053; 85025

== ENCOUNTER 2024-02-14 10:52 | Day surgery (SDC) | payer OTHER ==
[2024-02-14] MEDS ORDERED: SCOPOLAMINE 1 MG/72 HR PATCH TRANSDERM ONE ×2 (11:50)
[2024-02-14] MEDS ORDERED: HEPARIN SODIUM,PORCINE 5,000 UNIT/ML 1 ML VIAL ONE ×2 (11:50)
[2024-02-14] MEDS ORDERED: ACETAMINOPHEN TAB 500 MG TAB ONE ×2 (11:50)
[2024-02-14] MEDS ORDERED: DEXAMETHASONE SOD PHOSPHATE 4 MG/ML 1 ML VIAL ONE ×2 (11:50)
[2024-02-14] MEDS ORDERED: ONDANSETRON 4 MG/2 ML VIAL ONE ×2 (11:50)
[2024-02-14] MEDS ORDERED: SODIUM CHLORIDE 0.9% 50 ML BAG IV ONE (12:15)
[2024-02-14] MEDS ORDERED: ceFAZolin 10 GM VIAL IVPB ONE (12:15)
[2024-02-14] MEDS ORDERED: INDOCYANINE GREEN 25 MG VIAL IV ONE (12:15)
[2024-02-14] MEDS ORDERED: LACTATED RINGERS 1,000 ML BAG ONE ×2 (12:15→14:45)
[2024-02-14] MEDS ORDERED: HYDROmorphone (PF) 1 MG/ML ONE (12:28)
[2024-02-14] MEDS ORDERED: ROCURONIUM 10 MG/ML (5 ML VIAL) IV ONE (12:28)
[2024-02-14] MEDS ORDERED: PROPOFOL 10 MG/ML 20 ML VIAL IV ONE (12:28)
[2024-02-14] MEDS ORDERED: SUCCINYLCHOLINE CHLORIDE 200 MG/10 ML VIAL IV ONE (12:28)
[2024-02-14] MEDS ORDERED: GLYCOPYRROLATE 0.2 MG/ML 2 ML VIAL ONE (12:28)
[2024-02-14] MEDS ORDERED: LIDOCAINE 1% INJ 10MG/ML (20 ML MDV) ONE (12:28)
[2024-02-14] MEDS ORDERED: fentaNYL (PF) 50 MCG/ML 2 ML AMP ONE (12:28)
[2024-02-14] MEDS ORDERED: NEOSTIGMINE 1 MG/ML 10 ML VIAL ONE (12:28)
[2024-02-14] MEDS ORDERED: KETOROLAC 15 MG/ML 1 ML VIAL ONE (12:28)
[2024-02-14] MEDS ORDERED: MIDAZOLAM 2 MG/2 ML VIAL ONE (12:28)
[2024-02-14] MEDS ORDERED: HYDROmorphone 0.5 MG/0.5 ML SYRINGE ONE (14:43)
[2024-02-14] MEDS ORDERED: LIDOCAINE 1%-EPI 1:100,000 20 ML VIAL ONE (14:45)
--- NOTE | 2024-04-24 17:00 | P.GSHP ---
History of Present Illness H&P Date: 02/14/24 CHIEF COMPLAINT: Cholecystitis HISTORY OF PRESENT ILLNESS: The patient is a 39-year-old female who presents with history of epigastric including right upper quadrant abdominal pain for over 3 months. She underwent diagnostic studies for her gallbladder. Separately her clinical picture was consistent with cholecystitis. Now she presents for surgical intervention. PAST MEDICAL HISTORY: Please see list PAST SURGICAL HISTORY: Please see list MEDICATIONS: Please see list ALLERGIES: Please see list SOCIAL HISTORY: Please see list FAMILY HISTORY: Please see list REVIEW OF ORGAN SYSTEMS: CONSTITUTIONAL: No reports of fevers or chills. HEENT: Denies any troubles with the vision or hearing. ENDOCRINE: No reports of hypothyroidism. No diabetes. RESPIRATORY: No recent pneumonias. CARDIOVASCULAR: Denies chest pain or palpitations GI: No blood in stools or constipation. MUSCULOSKELETAL: Has occasional joint pain including back pain. NEURO: No seizure disorders or headaches. No recent stroke. PSYCH: No depression or suicidal ideation. GENITOURINARY: No active blood in urine. No urinary hesitancy. HEMATOLOGIC: No personal or family history of DVTs or pulmonary emboli. SKIN: No skin cancer. PHYSICAL EXAM: VITAL SIGNS: Afebrile vital signs stable GENERAL: Well-developed pleasant in no acute distress. HEENT: No scleral icterus. Extraocular movements grossly intact. Moist buccal mucosa. NECK: Supple without lymphadenopathy. CHEST: Unlabored respirations. Equal bilateral excursions. CARDIOVASCULAR: Regular rate regular rhythm rhythm. Distal 2+ pulses. ABDOMEN: Soft, nondistended. Tender along the epigastrium and right upper quadrant. MUSCULOSKELETAL: No clubbing, cyanosis, or edema. NEURO: Cranial nerves II to XII within normal limits. No focal or lateralizing signs. PSYCH: Alert and oriented to person, place and time. SKIN: Well-perfused good skin turgor. ASSESSMENT: 1. Epigastric and right upper quadrant abdominal pain 2. Chronic cholecystitis 3. Symptomatic gallstones. PLAN: 1. Will need a robotic cholecystectomy possible open. Benefits and risks were described. 2. Heparin for DVT prophylaxis 5000 units. 3. Antibiotic prophylaxis. 4. CBC and CMP on day of procedure 5. Non-narcotic pre and post op pain management reviewed. 6. Indocyanine green for biliary imaging. Past Medical History Past Medical History: Asthma, Hypertension, Thyroid Disorder Additional Past Medical History / Comment(s): severe migraines, pseudotumor cerebri/ History of Any Multi-Drug Resistant Organisms: None Reported Past Surgical History: Bariatric Surgery, Section Additional Past Surgical History / Comment(s): [facility] surgery, lt oophorectomy, brain surgery/stent in brain to keep vein open, csection 2003. gastric sleeve 05/31/23 Past Anesthesia/Blood Transfusion Reactions: Family History of Problems w/ Anesthesia Additional Past Anesthesia/Blood Transfusion Reaction / Comment(s): mother is allergic to most anesthesia medications experiences hives Smoking Status: Former smoker - Past Family History Mother Family Medical History: No Reported History Medications and Allergies Home Medications Medication Instructions Recorded Confirmed Type lisinopriL [Zestril] 10 mg PO QAM 07/17/16 04/12/24 History lamoTRIgine [LaMICtal] 100 mg PO QAM 12/02/22 04/12/24 History Albuterol Inhaler [Ventolin Hfa 1 - 2 puff INHALATION Q6H PRN 01/06/23 04/12/24 History Inhaler] Budesonide/Formoterol Fumarate 2 puff INHALATION BID 01/06/23 04/12/24 History [Symbicort 80-4.5 Mcg Inhaler] Levothyroxine Sodium [Synthroid] 200 mcg PO QAM 01/06/23 04/12/24 History Loratadine 10 mg PO QAM 01/06/23 04/12/24 History Levothyroxine Sodium 25 mcg PO QAM 05/24/23 04/12/24 History Montelukast [Singulair] 5 mg PO QAM 05/24/23 04/12/24 History atenoloL 100 mg PO QAM 05/24/23 04/12/24 History buPROPion HCL [buPROPion HCL SR] 300 mg PO QAM 05/24/23 04/12/24 History Omeprazole [PriLOSEC] 40 mg PO DAILY #30 cap 12/08/23 04/12/24 Rx Calcium Carbonate/Vitamin D3 1 tab PO DAILY 03/01/24 04/12/24 History [Calcium 500 mg Chewable Tablet] Cholecalciferol (Vitamin D3) 1 cap PO DAILY 03/01/24 04/12/24 History [Vitamin D3 (125 MCG = 5,000 IU)] Cyanocobalamin (Vitamin B-12) 1 tab PO DAILY 03/01/24 04/12/24 History [Vitamin B-12] Inulin/Chromium Picolinate [Fiber 1 tab PO DAILY 03/01/24 04/12/24 History Gummies Chew] Multivitamin [Multivitamins Adult 1 tab PO DAILY 03/01/24 04/12/24 History Gummies] Allergies Allergy/AdvReac Type Severity Reaction Status Date / Time latex Allergy Rash/Hives Verified 04/12/24 13:58 codeine AdvReac Low Blood Verified 04/12/24 13:58 Pressure
--- NOTE | 2024-04-24 17:04 | P.OP ---
Date of Procedure: 02/14/24 Description of Procedure: SURGEON: GERARDO GAMBLE MD PREOPERATIVE DIAGNOSES: 1. Symptomatic gallstone 2. Right upper quadrant abdominal pain 3. Hypertensive heart disease 4. Depressive disorder 5. Chronic obstructive pulmonary disease due to asthma 6. Hypothyroidism 7. Osteoarthritis of the lower back 8. Osteoarthritis bilateral hips 9. Osteoarthritis metal knees 10. Pseudotumor cerebri 11. Migraines 12. Generalized anxiety disorder 13. Attention deficit disorder with ADHD 14. Bipolar disorder 15. Post traumatic stress disorder 16. Motion sickness 17. Obstructive sleep apnea 18. Morbid obesity due to excess calories POSTOPERATIVE DIAGNOSES: 1. Chronic cholecystitis 2. Right upper quadrant abdominal pain 3. Hypertensive heart disease 4. Depressive disorder 5. Chronic obstructive pulmonary disease due to asthma 6. Hypothyroidism 7. Osteoarthritis of the lower back 8. Osteoarthritis bilateral hips 9. Osteoarthritis metal knees 10. Pseudotumor cerebri 11. Migraines 12. Generalized anxiety disorder 13. Attention deficit disorder with ADHD 14. Bipolar disorder 15. Post traumatic stress disorder 16. Motion sickness 17. Obstructive sleep apnea 18. Morbid obesity due to excess calories 19. Hepatomegaly with fatty liver disease OPERATION: Robotic-assisted da Clemencia Xi laparoscopic cholecystectomy, multiport with FIREFLY ESTIMATED BLOOD LOSS: 10 mL. SPECIMENS REMOVED: Gallbladder. COMPLICATIONS: None. OPERATIVE FINDINGS: 1. Moderate hepatomegaly with fatty liver disease INDICATIONS: The patient is a 39-year-old female who presents with right upper quadrant abdominal pain, chronic cholecystitis and symptomatic gallstones. R obotic assisted laparoscopic approach was described. Benefits and risks of the procedure including but not limited to bleeding, infection, injury to the biliary tree was described. Informed consent was obtained. DESCRIPTION OF PROCEDURE: Patient was brought to the operating room, placed in supine position. After general induction, the abdomen had been prepped and draped in standard sterile fashion. The robotic da Clemencia XI system was primed. After a timeout protocol was performed, the patient had been prepped and draped in standard sterile fashion. The patient was injected with indocyanine green. A 5 mm 0 degrees laparoscopic trocar entry was performed along the left upper quadrant. The abdomen insufflated to 15 mmHg pressure which was tolerated well. Diagnostic laparoscopy demonstrated no injury to bowel viscera or mesentery. Moderate hepatomegaly with fatty liver disease. Next, two 8 mm robotic ports were placed along the right upper abdomen. The camera 8-mm port was maintained along the epigastrium. Another 8 mm port was placed along the left upper abdominal wall after exchanging the 5 mm port. Please note that the ports were placed at least 10 to 15 cm away from the target anatomy of the gallbladder. The robot was docked along the left lateral abdomen. The patient was repositioned in reverse Trendelenburg position. Using a grasper for arm 3, a grasper for arm 4, including hook cautery for arm 1, the robotic system was docked and primed as described. Instruments were interchanged by the assistant manager quality management including hook cautery, Bovie cautery and clip appliers. I had sat at the console. The gallbladder was scarred with peritoneal adhesions. Lysis of adhesions was performed to free the gallbladder from the surrounding tissues. Next attention was brought to the infundibulum and cystic structures. The infundibulum and cystic duct were dissected free from surrounding tissues. The cystic duct was isolated. FIREFLY was used to identify the cystic artery and cystic structures. A critical view of safety was obtained. Large PLASTIC clips were used throughout the entire case. Using a clip inspector general, 2 clips were placed at the junction of the infundibulum and cystic duct. The cystic duct was divided between clips. Next, the cystic artery was similarly clipped and cauterized. Electro-Bovie cautery was used to remove the gallbladder from the hepatic fossa. Hemostasis was checked and found to be adequate. The robot was undocked. I re-scrubbed into the case. Using a 10 mm Endo Catch bag via the left upper quadrant incision, the specimen was removed from the abdominal cavity. All pneumoperitoneum instruments were evacuated from the abdominal cavity. The incisions were reapproximated using 4-0 Monocryl in an interrupted subcuticular fashion. Fascial defects were less than 8 mm in size. Please note along the trocar sites, local anesthetic was placed as a field block prior to insertion of all instruments. Liquid glue was applied to the skin. At the end of the procedure needle, sponge, and instrument count had been verified correct by the operating room surgical technician. The patient was transferred to postanesthesia care unit in stable condition. Intraoperative films were shared with the patient's family.
--- NOTE | 2024-04-24 17:05 | P.OP ---
Date of Procedure: 02/14/24 Description of Procedure: Date of Procedure: 02/14/24 Description of Procedure: SURGEON: GERARDO GAMBLE MD PREOPERATIVE DIAGNOSES: 1. Symptomatic gallstone 2. Right upper quadrant abdominal pain 3. Hypertensive heart disease 4. Depressive disorder 5. Chronic obstructive pulmonary disease due to asthma 6. Hypothyroidism 7. Osteoarthritis of the lower back 8. Osteoarthritis bilateral hips 9. Osteoarthritis metal knees 10. Pseudotumor cerebri 11. Migraines 12. Generalized anxiety disorder 13. Attention deficit disorder with ADHD 14. Bipolar disorder 15. Post traumatic stress disorder 16. Motion sickness 17. Obstructive sleep apnea 18. Morbid obesity due to excess calories POSTOPERATIVE DIAGNOSES: 1. Chronic cholecystitis 2. Right upper quadrant abdominal pain 3. Hypertensive heart disease 4. Depressive disorder 5. Chronic obstructive pulmonary disease due to asthma 6. Hypothyroidism 7. Osteoarthritis of the lower back 8. Osteoarthritis bilateral hips 9. Osteoarthritis metal knees 10. Pseudotumor cerebri 11. Migraines 12. Generalized anxiety disorder 13. Attention deficit disorder with ADHD 14. Bipolar disorder 15. Post traumatic stress disorder 16. Motion sickness 17. Obstructive sleep apnea 18. Morbid obesity due to excess calories 19. Hepatomegaly with fatty liver disease OPERATION: Robotic-assisted da Clemencia Xi laparoscopic cholecystectomy, multiport with FIREFLY ESTIMATED BLOOD LOSS: 10 mL. SPECIMENS REMOVED: Gallbladder. COMPLICATIONS: None. OPERATIVE FINDINGS: 1. Moderate hepatomegaly with fatty liver disease INDICATIONS: The patient is a 39-year-old female who presents with right upper quadrant abdominal pain, chronic cholecystitis and symptomatic gallstones. Robotic assisted laparoscopic approach was described. Benefits and risks of the procedure including but not limited to bleeding, infection, injury to the biliary tree was described. Informed consent was obtained. DESCRIPTION OF PROCEDURE: Patient was brought to the operating room, placed in supine position. After general induction, the abdomen had been prepped and draped in standard sterile fashion. The robotic da Clemencia XI system was primed. After a timeout protocol was performed, the patient had been prepped and draped in standard sterile fashion. The patient was injected with indocyanine green. A 5 mm 0 degrees laparoscopic trocar entry was performed along the left upper quadrant. The abdomen insufflated to 15 mmHg pressure which was tolerated well. Diagnostic laparoscopy demonstrated no injury to bowel viscera or mesentery. Moderate hepatomegaly with fatty liver disease. Next, two 8 mm robotic ports were placed along the right upper abdomen. The camera 8-mm port was maintained along the epigastrium. Another 8 mm port was placed along the left upper abdominal wall after exchanging the 5 mm port. Please note that the ports were placed at least 10 to 15 cm away from the target anatomy of the gallbladder. The robot was docked along the left lateral abdomen. The patient was repositioned in reverse Trendelenburg position. Using a grasper for arm 3, a grasper for arm 4, including hook cautery for arm 1, the robotic system was docked and primed as described. Instruments were interchanged by the environmental assistant including hook cautery, Bovie cautery and clip appliers. I had sat at the console. The gallbladder was scarred with peritoneal adhesions. Lysis of adhesions was performed to free the gallbladder from the surrounding tissues. Next attention was brought to the infundibulum and cystic structures. The infundibulum and cystic duct were dissected free from surrounding tissues. The cystic duct was isolated. FIREFLY was used to identify the cystic artery and cystic structures. A critical view of safety was obtained. Large PLASTIC clips were used throughout the entire case. Using a clip pointing machine operator, 2 clips were placed at the junction of the infundibulum and cystic duct. The cystic duct was divided between clips. Next, the cystic artery was similarly clipped and cauterized. Electro-Bovie cautery was used to remove the gallbladder from the hepatic fossa. Hemostasis was checked and found to be adequate. The robot was undocked. I re-scrubbed into the case. Using a 10 mm Endo Catch bag via the left upper quadrant incision, the specimen was removed from the abdominal cavity. All pneumoperitoneum instruments were evacuated from the abdominal cavity. The incisions were reapproximated using 4-0 Monocryl in an interrupted subcuticular fashion. Fascial defects were less than 8 mm in size. Please note along the trocar sites, local anesthetic was placed as a field block prior to insertion of all instruments. Liquid glue was applied to the skin. At the end of the procedure needle, sponge, and instrument count had been verified correct by the ophthalmic surgical assistant. The patient was transferred to postanesthesia care unit in stable condition. Intraoperative films were shared with the patient's family.
== END 2024-02-14 16:50 ==
LOC: OR 10:52
PROVIDERS: ATTEND Surgery Plastic and Reconstructive Surgery
DX: K80.10 Calculus of gallbladder with chronic cholecystitis without obstruction (principal); I10 Essential (primary) hypertension; J44.89 Other specified chronic obstructive pulmonary disease; E03.9 Hypothyroidism, unspecified; E66.01 Morbid (severe) obesity due to excess calories; G43.909 Migraine, unspecified, not intractable, without status migrainosus; F31.9 Bipolar disorder, unspecified; F43.10 Post-traumatic stress disorder, unspecified; F90.9 Attention-deficit hyperactivity disorder, unspecified type; F41.1 Generalized anxiety disorder; G47.33 Obstructive sleep apnea (adult) (pediatric); G93.2 Benign intracranial hypertension; I11.9 Hypertensive heart disease without heart failure; K76.0 Fatty (change of) liver, not elsewhere classified; M16.0 Bilateral primary osteoarthritis of hip; M17.0 Bilateral primary osteoarthritis of knee; Z87.891 Personal history of nicotine dependence; Z79.51 Long term (current) use of inhaled steroids; Z79.890 Hormone replacement therapy; Z79.899 Other long term (current) drug therapy; Z91.040 Latex allergy status; Z88.8 Allergy status to other drugs, medicaments and biological substances; Z88.5 Allergy status to narcotic agent; Z90.722 Acquired absence of ovaries, bilateral
CPT/HCPCS: 81025; 88304

== ENCOUNTER → 2024-03-10 | Outpatient (CLI) | payer OTHER ==
[2024-03-10 10:49] LABS: INR 0.9 (<1.2); Partial Thromboplastin Time 25.7 sec (22.0-30.0); Prothrombin Time 10.1 sec (10.0-12.5)
[2024-03-10 15:11] LABS: HCT 38.6 % (37.2-46.3); HGB 12.3 g/dL (12.0-15.0); MCHC 31.9 g/dL (32.0-37.0); Mean Platelet Volume 11.1 FL (9.5-12.2); NRBC Per 100 WBC 0 X 10*3/uL (0.00-0.01); Platelet Count 246 X 10*3/uL (140-440); RBC 4.24 X 10*6/uL (4.10-5.20); WBC 5.51 X 10*3/uL (4.50-10.00)
[2024-03-10 15:33] LABS: Prealbumin 17.1 mg/dL (18.0-42.0)
[2024-03-10 15:57] LABS: ALT 21 U/L (8-44); AST 19 U/L (13-35); Albumin 3.8 g/dL (3.8-4.9); Albumin/Globulin Ratio 1.46 Ratio (1.60-3.17); Alkaline Phosphatase 77 U/L (41-126); BUN/Creat Ratio 17.12 Ratio (12.00-20.00); Blood Urea Nitrogen 13.7 mg/dL (9.0-27.0); Calcium 9.1 mg/dL (8.7-10.3); Carbon Dioxide 21.8 mmol/L (21.6-31.8); Chloride 108 mmol/L (96-109); Chol/HDL Ratio 4.07 Ratio; Globulin 2.6 g/dL (1.6-3.3); Glucose 92 mg/dL (70-110); LDL Cholesterol,Calculated 68.1 mg/dL (0.0-131.0); Potassium 3.7 mmol/L (3.5-5.5); Sodium 142 mmol/L (135-145); Total Bilirubin 0.4 mg/dL (0.3-1.2); Total Protein 6.4 g/dL (6.2-8.2)
[2024-03-10 16:50] LABS: % Iron Saturation 21.34 (12.00-45.00); Iron 54 UG/DL (50-170); Phosphorus 3.2 mg/dL (2.4-5.1); Total Iron Binding Capacity 253 UG/DL (228-460)
[2024-03-13 13:37] LABS: Zinc, Serum 60 ug/dL (60-130)
[2024-03-14 12:58] LABS: Vit B1(Thiamine) 64 ug/L (38-122)
[2024-03-15 06:18] LABS: Vitamin A 37 ug/dL (38-106)
[2024-03-18 16:37] LABS: Selenium 93 mcg/L (63-160)
== END | disposition home or self-care (01) ==
LOC: LABWHC1 09:48
PROVIDERS: ATTEND Surgery Plastic and Reconstructive Surgery
DX: E66.01 Morbid (severe) obesity due to excess calories (principal); D50.8 Other iron deficiency anemias; K91.2 Postsurgical malabsorption, not elsewhere classified; E44.0 Moderate protein-calorie malnutrition; E45 Retarded development following protein-calorie malnutrition; E55.9 Vitamin D deficiency, unspecified; K74.1 Hepatic sclerosis; N19 Unspecified kidney failure; T56.894A Toxic effect of other metals, undetermined, initial encounter; K50.90 Crohn's disease, unspecified, without complications; E89.1 Postprocedural hypoinsulinemia
CPT/HCPCS: 36415; 80053; 80061; 82306; 82525; 82607; 82728; 82746; 83036; 83540; 83550; 83735; 83970; 84100; 84134; 84255; 84425; 84443; 84590; 84630; 85027; 85610; 85730

== ENCOUNTER → 2024-04-12 | Outpatient (CLI) | payer OTHER ==
[2024-04-12 14:04] VITALS: BP 142/86; PULSE 96; RESP 16; TEMP 98.4; BMI 49.9
--- NOTE | 2024-04-12 14:39 | P.BASOAP ---
Subjective Progress Note Date: 04/12/24 SHe lost over 100 pounds. Its 10 months. Her goal is 195 pounds. NO abdominal pain. NO GERD. NO dysphagia. Protein is 80 to 90 grams daily. No food journal. Food journal. Needs new labs. Goal target 800 to 900 kcal. Dinner boneless skinless thigh and brussel, 4 oz. Bkfast scrambled egg 1, 6= 13 grams. Lunch 30 Protein bar. Walks and ki. 5x/week. Smoking contributing to nausea. Objective - Vital Signs Vital signs: Vital Signs Temp 98.4 F 04/12/24 13:57 Pulse 96 04/12/24 13:57 Resp 16 04/12/24 13:57 BP 142/86 04/12/24 13:57 Pulse Ox FiO2 Intake & Output 04/11/24 04/12/24 04/12/24 18:59 06:59 18:59 Weight 127.913 kg Assessment/Plan Plan: Date: 04/12/24 Initial Weight: 182.798 kg Initial BMI: 71.4 Current Weight: 127.913 kg Current BMI: 49.9 Type of Surgery: Total Volume in Band: Previous Volume: Volume Removed: Volume Added: Band Size:
== END ==
LOC: BARWHC3 13:17
PROVIDERS: ATTEND Surgery Plastic and Reconstructive Surgery
DX: E66.01 Morbid (severe) obesity due to excess calories (principal); Z68.43 Body mass index [BMI] 50.0-59.9, adult; F17.210 Nicotine dependence, cigarettes, uncomplicated; Z91.040 Latex allergy status; Z88.5 Allergy status to narcotic agent
CPT/HCPCS: 99211

== ENCOUNTER → 2024-06-07 | Outpatient (CLI) | payer OTHER ==
[2024-06-07 12:12] LABS: INR 0.9 (<1.2); Partial Thromboplastin Time 24.9 sec (22.0-30.0); Prothrombin Time 10.3 sec (10.0-12.5)
[2024-06-07 16:08] LABS: HCT 45.5 % (37.2-46.3); HGB 13.9 g/dL (12.0-15.0); MCH 27.3 pg (27.0-32.0); MCHC 30.5 g/dL (32.0-37.0); MCV 89.2 FL (80.0-97.0); Mean Platelet Volume 10.3 FL (9.5-12.2); NRBC Per 100 WBC 0 X 10*3/uL (0.00-0.01); Platelet Count 262 X 10*3/uL (140-440); RDW 12.8 % (11.5-14.5); WBC 4.76 X 10*3/uL (4.50-10.00)
[2024-06-07 16:39] LABS: Chol/HDL Ratio 3.75 Ratio; Magnesium 2.1 mg/dL (1.5-2.4)
[2024-06-07 16:40] LABS: % Iron Saturation 12.97 (12.00-45.00); ALT 20 U/L (8-44); AST 24 U/L (13-35); Albumin 4.4 g/dL (3.8-4.9); Albumin/Globulin Ratio 1.38 Ratio (1.60-3.17); Alkaline Phosphatase 97 U/L (41-126); Blood Urea Nitrogen 13.5 mg/dL (9.0-27.0); Calcium 9.5 mg/dL (8.7-10.3); Carbon Dioxide 24.1 mmol/L (21.6-31.8); Chloride 106 mmol/L (96-109); Globulin 3.2 g/dL (1.6-3.3); Glucose 83 mg/dL (70-110); Iron 41 UG/DL (50-170); Phosphorus 3.9 mg/dL (2.4-5.1); Potassium 4.1 mmol/L (3.5-5.5); Sodium 142 mmol/L (135-145); Total Bilirubin 0.4 mg/dL (0.3-1.2); Total Iron Binding Capacity 316 UG/DL (228-460); Total Protein 7.6 g/dL (6.2-8.2)
[2024-06-08 11:35] LABS: Zinc, Serum 88 ug/dL (60-130)
[2024-06-09 07:16] LABS: Vitamin A 48 ug/dL (38-106)
[2024-06-09 07:38] LABS: Vit B1(Thiamine) 74 ug/L (38-122)
== END | disposition home or self-care (01) ==
LOC: LABWHC1 11:14
PROVIDERS: ATTEND Surgery Plastic and Reconstructive Surgery
DX: E66.01 Morbid (severe) obesity due to excess calories (principal); E89.1 Postprocedural hypoinsulinemia; D50.8 Other iron deficiency anemias; E44.0 Moderate protein-calorie malnutrition; E45 Retarded development following protein-calorie malnutrition; E55.9 Vitamin D deficiency, unspecified; K74.1 Hepatic sclerosis; N19 Unspecified kidney failure; T56.894A Toxic effect of other metals, undetermined, initial encounter
CPT/HCPCS: 36415; 80053; 80061; 82306; 82525; 82607; 82746; 83540; 83550; 83735; 83970; 84100; 84255; 84425; 84443; 84590; 84630; 85027; 85610; 85730

== ENCOUNTER → 2024-06-14 | Outpatient (CLI) | payer OTHER ==
[2024-06-14 13:56] VITALS: BP 140/85; PULSE 85; RESP 16; TEMP 98.6; BMI 49.4
--- NOTE | 2024-06-14 14:37 | P.BASOAP ---
Subjective Progress Note Date: 06/14/24 She has severe actid reflux. She has is severe when she lays down. She reports in her throat. She has vertigo. Omeprazole. GERD, sleeve. Hiatal hernia. Objective - Vital Signs Vital signs: Vital Signs Temp 98.6 F 06/14/24 13:48 Pulse 85 06/14/24 13:48 Resp 16 06/14/24 13:48 BP 140/85 06/14/24 13:48 Pulse Ox FiO2 Intake & Output 06/13/24 06/14/24 06/14/24 18:59 06:59 18:59 Weight 126.552 kg Assessment/Plan Plan: Date: 06/14/24 Initial Weight: 182.798 kg Initial BMI: 71.4 Current Weight: 126.552 kg Current BMI: 49.4 Type of Surgery: Total Volume in Band: Previous Volume: Volume Removed: Volume Added: Band Size:
== END ==
LOC: BARWHC3 13:30
PROVIDERS: ATTEND Surgery Plastic and Reconstructive Surgery
DX: E66.01 Morbid (severe) obesity due to excess calories (principal); Z71.3 Dietary counseling and surveillance; Z68.42 Body mass index [BMI] 45.0-49.9, adult; R42 Dizziness and giddiness; K21.9 Gastro-esophageal reflux disease without esophagitis; K44.9 Diaphragmatic hernia without obstruction or gangrene; Z88.5 Allergy status to narcotic agent; Z91.040 Latex allergy status; F17.210 Nicotine dependence, cigarettes, uncomplicated
CPT/HCPCS: 97803; G0463; 99211

== ENCOUNTER → 2024-08-18 | Outpatient (CLI) | payer OTHER | END | disposition home or self-care (01) | LOC: LABWHC1 14:32 | PROVIDERS: ATTEND Surgery Plastic and Reconstructive Surgery | DX: E03.9 Hypothyroidism, unspecified (principal) | CPT/HCPCS: 36415; 84443 ==

== ENCOUNTER → 2024-08-23 | Outpatient (CLI) | payer OTHER ==
[2024-08-23 14:45] VITALS: BP 135/83; PULSE 83; RESP 16; TEMP 98.5; BMI 47.8
--- NOTE | 2024-08-23 15:26 | P.BASOAP ---
Subjective Progress Note Date: 08/23/24 She is still losing weight! Wants to lose 80 pounds. Eating 80 grams of protein. All the time heartburn. NO more hotsause. Needs EGD and esophagram. Needs to adjust to sublingual medications. Reglan not advised with medications. Objective - Vital Signs Vital signs: Vital Signs Temp 98.5 F 08/23/24 14:36 Pulse 83 08/23/24 14:36 Resp 16 08/23/24 14:36 BP 135/83 08/23/24 14:36 Pulse Ox FiO2 Intake & Output 08/22/24 08/23/24 08/23/24 18:59 06:59 18:59 Weight 122.47 kg Assessment/Plan Plan: Date: 08/23/24 Initial Weight: 182.798 kg Initial BMI: 71.4 Current Weight: 122.47 kg Current BMI: 47.8 Type of Surgery: Total Volume in Band: Previous Volume: Volume Removed: Volume Added: Band Size:
== END ==
LOC: BARWHC3 14:11
PROVIDERS: ATTEND Surgery Plastic and Reconstructive Surgery
DX: E66.01 Morbid (severe) obesity due to excess calories (principal); Z68.41 Body mass index [BMI] 40.0-44.9, adult; F17.210 Nicotine dependence, cigarettes, uncomplicated; Z91.040 Latex allergy status; Z88.5 Allergy status to narcotic agent
CPT/HCPCS: 99211

== ENCOUNTER → 2024-09-06 | Outpatient (CLI) | payer OTHER ==
--- NOTE | 2024-09-06 13:24 | FL ---
EXAMINATION TYPE: FL barium swallow DATE OF EXAM: 09/06/2024 CLINICAL HISTORY: Status post gastric sleeve 1 MIN 5 SEC FL TIME The patient ingested contrast without difficulty or delay. Noted are postsurgical changes of gastric sleeve. There is no evidence for leak or obstruction. Contrast is noted within the duodenum. No evidence for significant reflux during the study. No filling defect to suggest mass. No ulcer crater s seen with certainty. IMPRESSION: Unremarkable study [facility] Devin Macedo, , 09/06/2024 1:21 PM
== END | disposition home or self-care (01) ==
LOC: RADFLMAIN 10:28
PROVIDERS: ATTEND Surgery Plastic and Reconstructive Surgery
DX: R13.10 Dysphagia, unspecified (principal)
CPT/HCPCS: 74220

== ENCOUNTER 2024-09-25 08:49 | Day surgery (SDC) | payer OTHER ==
[2024-09-22 15:08] VITALS: BMI 52.7
--- NOTE | 2024-09-25 07:53 | P.GSHP ---
History of Present Illness H&P Date: 09/25/24 CHIEF COMPLAINT: GERD HISTORY OF PRESENT ILLNESS: The patient is a 39-year-old female who presents reports gastroesophageal reflux disease. Upper endoscopy was offered for further evaluation and management. PAST MEDICAL HISTORY: Please see list. PAST SURGICAL HISTORY: Please see list. MEDICATIONS: Please see list. ALLERGIES: Please see list. SOCIAL HISTORY: No illicit drug use FAMILY HISTORY: No reports of Crohn disease or ulcerative colitis. REVIEW OF ORGAN SYSTEMS: CONSTITUTIONAL: No reports of fevers or chills. GI: Denies any blood in stools or constipation. PHYSICAL EXAM: VITAL SIGNS: Stable GENERAL: Well-developed and pleasant in no acute distress. HEENT: No scleral icterus. Extraocular movements grossly intact. Moist buccal mucosa. NECK: Supple without lymphadenopathy. CHEST: Unlabored respirations. Equal bilateral excursions. CARDIOVASCULAR: Regular rate and rhythm. Distal 2+ pulses. ABDOMEN: Soft, nondistended. MUSCULOSKELETAL: No clubbing, cyanosis, or edema. ASSESSMENT: 1. Gastroesophageal reflux disease PLAN: 1. Recommend proceeding with an upper endoscopy Past Medical History Past Medical History: Asthma, Hypertension, Thyroid Disorder Additional Past Medical History / Comment(s): severe migraines, pseudotumor cerebri/ vertigo, PCOS History of Any Multi-Drug Resistant Organisms: None Reported Past Surgical History: Bariatric Surgery, Section, Cholecystectomy Additional Past Surgical History / Comment(s): [facility], left oophorectomy, brain surgery/stent in brain to keep vein open, csection 2003. gastric sleeve 05/31/23, cervical biopsy 08/22/24 Past Anesthesia/Blood Transfusion Reactions: Family History of Problems w/ Anesthesia Additional Past Anesthesia/Blood Transfusion Reaction / Comment(s): mother is allergic to most anesthesia medications experiences hives Smoking Status: Former smoker - Past Family History Mother Family Medical History: No Reported History Medications and Allergies Home Medications Medication Instructions Recorded Confirmed Type lamoTRIgine [LaMICtal] 200 mg PO QAM 12/02/22 09/22/24 History Albuterol Inhaler [Ventolin Hfa 1 - 2 puff INHALATION Q6H PRN 01/06/23 09/22/24 History Inhaler] atenoloL 100 mg PO QAM 05/24/23 09/22/24 History Calcium Carbonate/Vitamin D3 1 tab PO DAILY 03/01/24 09/22/24 History [Calcium 500 mg Chewable Tablet] Ferrous Sulfate [Iron] 325 mg PO DAILY 06/14/24 09/22/24 History Fish Oil/Dha/Epa [Fish Oil 1,200 1 cap PO DAILY 06/14/24 09/22/24 History mg Fish Oil] Omeprazole [PriLOSEC] 40 mg PO DAILY #90 cap 06/14/24 09/22/24 Rx Levothyroxine Sodium [Synthroid] 100 mcg PO DAILY #30 tab 08/23/24 09/22/24 Rx Medroxyprogesterone Acetate 1 injection INJ Q3M 08/23/24 09/22/24 History [Depo-Provera] Calcium Carbonate/Vitamin D3 1 tab PO BID 09/22/24 09/22/24 History [Calcium 250-D Tablet] Ergocalciferol [Vitamin D2 (1250 1,250 mcg PO WEEKLY 09/22/24 09/22/24 History Mcg = 49814 Iu)] L.acidoph,Paracasei, B.lactis 1 cap PO DAILY 09/22/24 09/22/24 History [Probiotic] LORazepam [Ativan] 0.5 mg PO DAILY 09/22/24 09/22/24 History Liraglutide [Saxenda] 18 mg SQ DAILY 09/22/24 09/22/24 History Montelukast [Singulair] 10 mg PO DAILY 09/22/24 09/22/24 History Vitamin A 1 cap PO DAILY 09/22/24 09/22/24 History buPROPion [Wellbutrin] 300 mg PO DAILY 09/22/24 09/22/24 History Allergies Allergy/AdvReac Type Severity Reaction Status Date / Time latex Allergy Rash/Hives Verified 09/22/24 14:57 codeine AdvReac Low Blood Verified 09/22/24 14:57 Pressure
[~2024-09-25 08:49] MED LIST changes: -ACETAMINOPHEN TAB 500 MG TAB PO PRN; -ALVIMOPAN 12 MG CAPSULE PO PRN; -CHLORHEXIDINE GLUCONATE 15 ML CUP MUCOUS MEM PRN; -ENOXAPARIN 40 MG/0.4 ML SYRINGE SQ PRN; +LACTATED RINGERS 1,000 ML IV SCH; -MIDAZOLAM 2 MG/2 ML VIAL IV PRN; -ONDANSETRON 4 MG/2 ML VIAL IVP PRN; -PANTOPRAZOLE 40 MG/10 ML VIAL IVP PRN; -ceFAZolin 3 GM in SODIUM CHLORIDE 0.9% 100 ML IVPB PRN; -droPERidol 5 MG/2 ML VIAL IVP ONE
[2024-09-25] MEDS: LACTATED RINGERS 1,000 ML IV ONE (09:22)
[2024-09-25 09:24] VITALS: TEMP 98
[2024-09-25] MEDS ORDERED: PROPOFOL 10 MG/ML 20 ML VIAL IV ONE (09:27)
[2024-09-25 10:17] VITALS: BP 131/76; PULSE 67; RESP 20
--- NOTE | 2024-09-25 10:18 | P.PCN ---
Date of Procedure: 09/25/24 Description of Procedure: PREOPERATIVE DIAGNOSIS: Gastroesophageal reflux disease. Epigastric abdominal pain. Status post sleeve gastrectomy. POSTOPERATIVE DIAGNOSIS: Status post sleeve gastrectomy. Gastroesophageal reflux disease. Adverse reaction medication, [facility] OPERATION: Esophagogastroduodenoscopy with cold forceps biopsies along the antrum, esophagus, duodenum. SURGEON: Jaymie Barfield MD ANESTHESIA: MAC. INDICATIONS: The patient is a 39-year-old female who presents with a history of sleeve gastrectomy with gastroesophageal reflux disease and abdominal pain. Benefits and risks of the procedure were described. Informed consent was obtained. DESCRIPTION: The patient was brought into the endoscopy suite and laid in the left lateral decubitus position. An Olympus gastroscope was passed along the posterior oropharynx down to the distal esophagus where the squamocolumnar junction was at 38 centimeters from the incisors remarkable for chronic erosive esophagitis, LA grade A without ulceration. The stomach was entered without tortuosity of sleeve. Chronic gastritis albeit mild was found along the antrum with cold biopsies obtained. The first through third portion of the duodenum was examined and biopsies obtained. The scope was retroflexed along the antrum. The stomach was desufflated. The patient tolerated the procedure well. FINDINGS: No acute ulceration found along her sleeve. No corkscrewing sleeve gastrectomy. Squamocolumnar junction at 38 cm from the incisors. No diaphragmatic hiatal hernia Sleeve gastric reservoir within normal limits LA grade A erosive esophagitis. Biopsies obtained Biopsies obtained of duodenum Chronic gastritis. Biopsies obtained RECOMMENDATIONS: Upper endoscopy as needed. Recommend assessment side effects from [facility] Plan - Discharge Summary Discharge Rx Participant: No New Discharge Prescriptions: Continue Albuterol Inhaler [Ventolin Hfa Inhaler] 1 - 2 puff INHALATION Q6H PRN PRN Reason: Dyspnea atenoloL 100 mg PO QAM Calcium Carbonate/Vitamin D3 [Calcium 250-D Tablet] 1 tab PO BID Montelukast [Singulair] 10 mg PO DAILY LORazepam [Ativan] 0.5 mg PO DAILY L.acidoph,Paracasei, B.lactis [Probiotic] 1 cap PO DAILY lamoTRIgine [LaMICtal] 200 mg PO QAM Calcium Carbonate/Vitamin D3 [Calcium 500 mg Chewable Tablet] 1 tab PO DAILY Ferrous Sulfate [Iron] 325 mg PO DAILY Fish Oil/Dha/Epa [Fish Oil 1,200 mg Fish Oil] 1 cap PO DAILY Omeprazole [PriLOSEC] 40 mg PO DAILY #90 cap Medroxyprogesterone Acetate [Depo-Provera] 1 injection INJ Q3M Levothyroxine Sodium [Synthroid] 100 mcg PO DAILY #30 tab Ergocalciferol [Vitamin D2 (1250 Mcg = 85789 Iu)] 1,250 mcg PO WEEKLY buPROPion [Wellbutrin] 300 mg PO DAILY Liraglutide [Saxenda] 18 mg SQ DAILY Vitamin A 1 cap PO DAILY Discharge Medication List lamoTRIgine [LaMICtal] 200 mg PO QAM 12/02/22 [History] Albuterol Inhaler [Ventolin Hfa Inhaler] 1 - 2 puff INHALATION Q6H PRN 01/06/23 [History] atenoloL 100 mg PO QAM 05/24/23 [History] Calcium Carbonate/Vitamin D3 [Calcium 500 mg Chewable Tablet] 1 tab PO DAILY 03/01/24 [History] Ferrous Sulfate [Iron] 325 mg PO DAILY 06/14/24 [History] Fish Oil/Dha/Epa [Fish Oil 1,200 mg Fish Oil] 1 cap PO DAILY 06/14/24 [History] Omeprazole [PriLOSEC] 40 mg PO DAILY #90 cap 06/14/24 [Rx] Levothyroxine Sodium [Synthroid] 100 mcg PO DAILY #30 tab 08/23/24 [Rx] Medroxyprogesterone Acetate [Depo-Provera] 1 injection INJ Q3M 08/23/24 [History] Calcium Carbonate/Vitamin D3 [Calcium 250-D Tablet] 1 tab PO BID 09/22/24 [History] Ergocalciferol [Vitamin D2 (1250 Mcg = 57052 Iu)] 1,250 mcg PO WEEKLY 09/22/24 [History] L.acidoph,Paracasei, B.lactis [Probiotic] 1 cap PO DAILY 09/22/24 [History] LORazepam [Ativan] 0.5 mg PO DAILY 09/22/24 [History] Liraglutide [Saxenda] 18 mg SQ DAILY 09/22/24 [History] Montelukast [Singulair] 10 mg PO DAILY 09/22/24 [History] Vitamin A 1 cap PO DAILY 09/22/24 [History] buPROPion [Wellbutrin] 300 mg PO DAILY 09/22/24 [History] [facility] [place] [facility] 3:00 pm Patient Instructions/Handouts: GERD (Gastroesophageal Reflux Disease) (ED) Discharge Disposition: HOME SELF-CARE
== END 2024-09-25 11:02 | disposition home or self-care (01) ==
LOC: ORWHC2ENDO 08:49
PROVIDERS: ATTEND Surgery Plastic and Reconstructive Surgery
DX: K21.00 Gastro-esophageal reflux disease with esophagitis, without bleeding (principal); K29.50 Unspecified chronic gastritis without bleeding; K22.89 Other specified disease of esophagus; K22.10 Ulcer of esophagus without bleeding; J45.909 Unspecified asthma, uncomplicated; I10 Essential (primary) hypertension; G43.909 Migraine, unspecified, not intractable, without status migrainosus; E28.2 Polycystic ovarian syndrome; E07.9 Disorder of thyroid, unspecified; G47.33 Obstructive sleep apnea (adult) (pediatric); F90.9 Attention-deficit hyperactivity disorder, unspecified type; F41.1 Generalized anxiety disorder; F32.A Depression, unspecified; F43.10 Post-traumatic stress disorder, unspecified; M19.90 Unspecified osteoarthritis, unspecified site; G93.2 Benign intracranial hypertension; Z90.49 Acquired absence of other specified parts of digestive tract; Z87.891 Personal history of nicotine dependence; Z98.890 Other specified postprocedural states; Z79.899 Other long term (current) drug therapy; Z79.890 Hormone replacement therapy; Z79.3 Long term (current) use of hormonal contraceptives; Z91.040 Latex allergy status; Z88.5 Allergy status to narcotic agent
CPT/HCPCS: 81025; 43239; J2704; 88305